=== PATIENT | female | born 1945 | race Caucasian/White ===

== ENCOUNTER 2023-12-16 14:13 | Emergency (ER) | payer MEDICARE, BC, SELFPAY ==
[2023-12-16 14:28] VITALS: BP 142/67
[2023-12-16 14:58] LABS: % Basophils 0.4 % (0-2); % Immature Granulocytes 0.6 % (0-0.5); % Lymphocytes 20.5 % (20.5-51.1); % Monocytes 4.9 % (1.7-9.3); % Neutrophils 72.6 % (42.2-75.2); Absolute Eosinophils 0.1 10^3/uL (0-0.7); Absolute Immature Granulocytes 0.1 10^3/uL (0-0.05); Absolute Monocytes 0.5 10^3/uL (0.1-0.6); Absolute Neutrophils 7.1 10^3/uL (1.4-6.5); Hematocrit 33.8 % (37.0-47.0); Hemoglobin 9.8 g/dL (12.0-16.0); Mean Corpuscular Hgb 20.5 pg (27.0-31.0); Mean Corpuscular Volume 70.9 fL (81.0-99.0); Mean Platelet Volume 10.7 fL (7.4-10.4); Nucleated Red Blood Cells % 0 %; Platelet Count 179 10^3/uL (130-400); Red Blood Cell Count 4.77 10^6/uL (4.20-5.40); Red Cell Dist. Width 18.6 % (11.5-14.5); White Blood Cell Count 9.8 10^3/uL (4.8-10.8)
[2023-12-16 15:20] LABS: ALT (SGPT) 15 U/L (0-35); AST (SGOT) 26 U/L (14-36); Albumin 3.6 g/dl (3.5-5.0); Alkaline Phosphatase 84 U/L (38-126); Blood Urea Nitrogen 18 mg/dl (7-17); Calcium 9.5 mg/dl (8.4-10.2); Carbon Dioxide 22 mmol/L (22-30); Chloride 107 mmol/L (98-107); Glucose 165 mg/dl (70-99); Potassium 3.6 mmol/L (3.5-5.1); Sodium 142 mmol/L (135-145); Total Bilirubin 0.7 mg/dl (0.2-1.3); eGFR > 60.00
[2023-12-16 15:26] LABS: Troponin I < 0.012 ng/ml
[2023-12-16 15:33] LABS: Normal RBC Morphology No
[2023-12-16 15:34] LABS: Hypochromasia Slight
[2023-12-16 15:37] LABS: Poikilocytosis Slight
[2023-12-16 16:03] VITALS: BMI 30.1
[2023-12-16 16:05] VITALS: BP 152/63
--- NOTE | 2023-12-16 16:15 | ED.GENMED ---
History of Present Illness
General
Chief Complaint: Heart Rate Problem
Time Seen by Provider: 12/16/23 15:49
Travel History
Have you had any contact with someone who has COVID-19?: No
Do you have any symptoms of coronavirus? Fever > 100 degrees, chills, cough, shortness of breath, sore throat, loss of taste or smell, muscle aches, or headache?: No
History of Present Illness
History of Present Illness:
78-year-old female presents to the emergency department for evaluation of presumed rapid atrial fibrillation. Has a history of A-fib status post pacemaker placement, was being assessed by her nurse practitioner at [facility] today
when an irregular heart rhythm was noted. She states she abruptly had an onset of shortness of breath after eating lunch however currently feels well with no symptoms. She is maintained on digoxin but does not take any other rate control
medications. Currently has no chest pain or shortness of breath
Past History
Past History
ED Past Medical History: Arrthythmia (A fib on Eliquis), COPD, GERD, HTN, Psychiatric (anxiety. Saw PCP 3 days ago and started on Zoloft. Takes Escitalopram 10 mg, Hydroxizine 25 mg, Trazadone 50 mg) and Other (melanoma, pruritis w/ constant
scratching and digging at skin causing cellulitis)
ED Past Surgical History: Gynecological and Other (N/A)
Social History
Tobacco: Non-smoker
Personal: Single
Living: alone
Review of Systems
Review of Systems
Allergies reviewed?: Yes
All Other Systems: ROS reviewed and negative except as documented in HPI and ROS
Phy Exam
Physical Exam
Physical Exam:
GEN: Well appearing, NAD, WDWN
HEENT: Oral mucosa moist, no scleral icterus
Cardiac: Irregular rhythm, controlled rate, no murmur
Lung: No respiratory distress, no tachypnea, lungs clear to auscultation bilaterally
MSK: No gross deformity or injuries, no lower extremity edema
Skin: Good color, no pallor or jaundice, no rashes
Neuro: AO x3, moves all extremities freely
Psych: Calm, cooperative
Course
Orders/Labs/Results
Orders:
Orders
12/16/23 14:18
ECG [Electrocardiogram (*1)] Urgent
Reason for Study: Chest Pain
EKG- Treatment ONCE
12/16/23 14:44
Complete Blood Count/With Diff Urgent
Comprehensive Metabolic Panel Urgent
Troponin I Urgent
12/16/23 16:03
CR Chest - 2 Views Urgent
Comment:
Reason For Exam: SOB
Abnormal Lab Results
12/16/23
14:44
Hgb 9.8 L g/dL
(12.0-16.0)
Hct 33.8 L %
(37.0-47.0)
MCV 70.9 L fL
(81.0-99.0)
MCH 20.5 L pg
(27.0-31.0)
MCHC 29.0 L g/dL
(33.0-37.0)
RDW 18.6 H %
(11.5-14.5)
MPV 10.7 H fL
(7.4-10.4)
Abs Immat Gran (auto) 0.1 H 10^3/uL
(0-0.05)
Absolute Neuts (auto) 7.1 H 10^3/uL
(1.4-6.5)
Immature Gran % 0.6 H %
(0-0.5)
BUN 18 H mg/dl
(7-17)
Glucose 165 H mg/dl
(70-99)
Total Protein 6.0 L g/dl
(6.3-8.2)
12/16/23 14:44
12/16/23 14:44
Vital Signs
Initial and Last Documented VS:
Initial Vital Signs
Temp Pulse Resp BP Pulse Ox
98.3 F 110 18 142/67 97
12/16/23 14:28 12/16/23 14:28 12/16/23 14:28 12/16/23 14:28 12/16/23 14:28
Last Documented Vital Signs
Temp Pulse Resp BP Pulse Ox
98.3 F 80 15 155/64 96
12/16/23 14:28 12/16/23 17:30 12/16/23 17:30 12/16/23 17:06 12/16/23 17:30
MDM/Problems Addressed
MDM/Problems Addressed:
Patient noted to be initially in rapid atrial fibrillation however after allowing the patient to rest in the emergency department heart rate improved. She was able to ambulate without significant increase in heart rate and had no shortness of
breath or hypoxia. Her symptoms have since resolved. 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
controlling meds at this time. Pacemaker was interrogated which confirmed the patient is chronically in an atrial arrhythmia with occasional atrial or SVT episodes, most recently occurring today correlating with the patient's symptoms.
*Critical Care Note
Total Time (30-74mins, 75-104mins- exclusive of procedures): Not Applicable
ED Attending Note
-
Portions of this chart may have been created with voice recognition software.� Occasional wrong word or��sound alike� substitutions may have occurred due to the inherent limitations of voice recognition software.
Discharge Plan
Departure
Patient Disposition: Home (Routine Discharge)
Date of Disposition: 12/16/23
Time of Disposition: 17:23
Patient with high blood pressure during this ER visit?: No
Discharge Problem:
Atrial fibrillation
Instructions: Atrial Fibrillation (DC)
Prescriptions:
No Action
furosemide 40 mg tablet
60 mg PO DAILY
potassium chloride 10 mEq capsule, extended release
10 meq PO DAILY
ropinirole 1 mg tablet
1 mg PO HS
Rx Instructions:
taken w/ 2mg = 3mg
trazodone 50 mg tablet
50 mg PO HS
omeprazole 40 mg capsule,delayed release(DR/EC)
40 mg PO BID
buspirone 7.5 mg tablet
7.5 mg PO BID
digoxin 125 mcg (0.125 mg) tablet
0.125 mcg PO DAILY
Eliquis 5 mg tablet
5 mg PO BID
metolazone 2.5 mg tablet
2.5 mg PO DAILY PRN (Reason: Fluid retention/Swelling)
Fruit and Vegetable Daily 5-6-150 mg Capsule
1 cap PO TID
cyanocobalamin (vitamin B-12) 1,000 mcg Tablet
1,000 mcg PO DAILY Qty: 0 0RF
Saccharomyces boulardii 250 mg Capsule
250 mg PO BID Qty: 0 0RF
aspirin 81 mg Tablet,Delayed Release (Dr/Ec)
81 mg PO DAILY
carvedilol 3.125 mg tablet
3.125 mg PO BID
ropinirole 2 mg tablet
2 mg PO HS
magnesium 250 mg Tablet
250 mg PO HS
duloxetine 30 mg capsule,delayed release(DR/EC)
30 mg PO DAILY
Referrals:
BEENA VIERA CRNP [Family Provider] -
Activity Restrictions/Additional Instructions:
Call your dumpcart driver tomorrow
Interventions
Interventions:
*Risk Screen - Suicide Last Done: 12/16/23 14:28
*General Assessment Last Done: 12/16/23 16:08
*Neglect/Abuse Screening Last Done: 12/16/23 14:28
ED- Fall Risk Assessment Last Done: 12/16/23 16:09
*ED COVID-19 Vaccine History Last Done: 12/16/23 14:28
*Nursing Disposition Last Done: 12/16/23 17:53
ED- Cardiac Assessment Last Done: 12/16/23 16:05
ED- Pulmonary Assessment Last Done: 12/16/23 16:05
Discharge Date and Time
Discharge Date/Time: 12/16/23 17:53
[2023-12-16 17:06] VITALS: BP 155/64
== END 2023-12-16 17:53 | disposition home or self-care (01) ==
LOC: EMR 14:13
PROVIDERS: Emergency Medicine; EMERGENCY PHYSICIAN Emergency Medicine; FAMILY PHYSICIAN Nurse Practitioner Gerontology
DX: I48.91 Unspecified atrial fibrillation (principal); Z95.0 Presence of cardiac pacemaker
CPT/HCPCS: 99285; 93288; 71046; 80053; 84484; 85025; 93005

== ENCOUNTER → 2024-04-11 17:18 | Outpatient (REF) | payer MEDICARE, BC, SELFPAY | LOC: RAD 17:18 | PROVIDERS: ATTENDING PHYSICIAN Otolaryngology | DX: E04.2 Nontoxic multinodular goiter (principal) | CPT/HCPCS: 76536 ==

== ENCOUNTER → 2024-09-15 10:16 | Outpatient (REF) | payer MEDICARE, BC, SELFPAY ==
[2024-09-15 10:50] LABS: Urine Albumin 1+ (Neg - Trace); Urine Bilirubin Negative (Negative); Urine Character Clear (Clear); Urine Color Yellow; Urine Glucose Negative (Negative); Urine Ketone Negative (Negative); Urine Leukocyte Negative (Negative); Urine Nitrite Positive (Negative); Urine Occult Blood Negative (Negative); Urine Urobilinogen Negative (Neg - 1+)
[2024-09-15 11:14] LABS: Urine Bacteria Many (Negative); Urine Red Blood Cell 0-2 /HPF (0-2); Urine White Cell 21-25 /HPF (0-5)
== END ==
LOC: OLABMERCHI 10:16
PROVIDERS: ATTENDING PHYSICIAN Hospitalist
DX: N39.0 Urinary tract infection, site not specified (principal)
CPT/HCPCS: 36415; 81003; 81015; 87077; 87086; 87186

== ENCOUNTER 2024-12-18 22:58 | Inpatient (IN) | payer MEDICARE, BC, SELFPAY ==
[2024-12-18] VITALS (26 sets, daily range): BP systolic 91–149; BP diastolic 59–127; BMI 32.4
[2024-12-18] MEDS: CARDIZEM 15 MG IV (19:48)
[2024-12-18] MEDS: CARDIZEM 125 IV (19:49)
[2024-12-18 20:05] LABS: % Basophils 0.2 % (0-2); % Immature Granulocytes 1.2 % (0-0.5); % Lymphocytes 4.8 % (20.5-51.1); % Monocytes 6.2 % (1.7-9.3); % Neutrophils 87.6 % (42.2-75.2); Absolute Basophils 0.1 10^3/uL (0-0.2); Absolute Immature Granulocytes 0.3 10^3/uL (0-0.05); Absolute Monocytes 1.3 10^3/uL (0.1-0.6); Absolute Neutrophils 18.9 10^3/uL (1.4-6.5); Hematocrit 39.9 % (37.0-47.0); Hemoglobin 10.7 g/dL (12.0-16.0); Mean Corp Hgb Conc. 26.8 g/dL (33.0-37.0); Mean Corpuscular Hgb 20.9 pg (27.0-31.0); Mean Corpuscular Volume 77.8 fL (81.0-99.0); Mean Platelet Volume 11.2 fL (7.4-10.4); Nucleated Red Blood Cells % 0.8 %; Platelet Count 463 10^3/uL (130-400); Red Blood Cell Count 5.13 10^6/uL (4.20-5.40); Red Cell Dist. Width 16.8 % (11.5-14.5); White Blood Cell Count 21.6 10^3/uL (4.8-10.8)
[2024-12-18 20:13] LABS: INR 2.78; PT 29.3 Sec (11.4-14.6)
[2024-12-18 20:17] LABS: Alkaline Phosphatase 103 U/L (38-126); Blood Urea Nitrogen 42 mg/dl (7-17); Calcium 9.5 mg/dl (8.4-10.2); Carbon Dioxide 7 mmol/L (22-30); Chloride 111 mmol/L (98-107); Estimated Creatinine Clearance 23 ml/min; Glucose 40 mg/dl (70-99); Potassium 6.5 mmol/L (3.5-5.1); Sodium 146 mmol/L (135-145); Total Protein 6.1 g/dl (6.3-8.2); eGFR 24.64
[2024-12-18 20:20] LABS: COVID-19 Antigen Negative (Negative)
[2024-12-18] MEDS: DEXTROSE 50% SYRINGE 25 GRAMS IV (20:24)
[2024-12-18] MEDS: NOVOLIN R 5 UNITS IV (20:24)
[2024-12-18 20:26] LABS: ALT (SGPT) 39 U/L (0-35); AST (SGOT) 62 U/L (14-36)
[2024-12-18] MEDS: D10W 250 IV (20:27)
[2024-12-18 20:28] LABS: NT-proBNP 15200 pg/ml; Troponin I 0.051 ng/ml
[2024-12-18] MEDS: CALCIUM GLUCONATE 100 IV (20:44)
[2024-12-18 20:49] LABS: Glucose - Point of Care 61 mg/dl (70-99)
[2024-12-18 21:09] LABS: Lactic Acid 10.8 mmol/L (0.7-2.0)
[2024-12-18 21:15] LABS: B.E. -16.3 mmol/L; O2 Saturation % 97.8 % (94-98); PCO2 23 mmHg (32-35); PO2 94 mmHg (83-108); pH 7.23 (7.35-7.45)
[2024-12-18 21:17] LABS: HCO3 9.6 mmol/L (21-28)
[2024-12-18 21:21] LABS: Glucose - Point of Care 150 mg/dl (70-99)
--- NOTE | 2024-12-18 21:30 | ED.GENMED ---
Addendum entered and electronically signed by Jaxon Jones, 12/18/24 22:55:
Patient seen evaluated by myself. 79-year-old female alert and oriented, hypoxia improved, no clear cause for possible sepsis. Possibly related to hypoxia. Hyperkalemia improved after IV insulin. Renal insufficiency. Elevated bilirubin of
unclear etiology. Admit to ICU.
Original Note:
History of Present Illness
<Good Ellis PA-C - Last Filed: 12/18/24 21:48>
General
Chief Complaint: Breathing Problem
Time Seen by Provider: 12/18/24 19:16
History of Present Illness
History of Present Illness:
79-year-old female with history of paroxysmal A-fib on Eliquis, permanent pacemaker, COPD, and hypertension presents to the emergency department for evaluation of shortness of breath that is been worsening for the past month or more. In the past 7
days it is profoundly worsened causing her to come to the ER today. Her son attempted to get a home pulse oximetry reading on her and was unable to get a valid number. She denies any chest or abdominal pain at this time. She has been compliant
with all of her home medications. She is noted to have numerous skin excoriations which she states are chronic for her.
Past History
<Good Ellis PA-C - Last Filed: 12/18/24 21:48>
Past History
ED Past Medical History: Arrthythmia (A fib on Eliquis), COPD, GERD, HTN, Psychiatric (anxiety. Saw PCP 3 days ago and started on Zoloft. Takes Escitalopram 10 mg, Hydroxizine 25 mg, Trazadone 50 mg) and Other (melanoma, pruritis w/ constant
scratching and digging at skin causing cellulitis)
ED Past Surgical History: Gynecological and Other (N/A)
Social History
Tobacco: Non-smoker
Personal: Single
Living: alone
Review of Systems
<Good Ellis PA-C - Last Filed: 12/18/24 21:48>
Review of Systems
Allergies reviewed?: Yes
All Other Systems: ROS reviewed and negative except as documented in HPI and ROS
Phy Exam
<Good Ellis PA-C - Last Filed: 12/18/24 21:48>
Physical Exam
Physical Exam:
GEN: Pale, acutely ill-appearing, tachypneic
Eyes: PERRLA, EOMs intact, no scleral icterus
HENT: NCAT, oral mucosa dry, no JVD
Lungs: Tachypneic, no accessory muscle use, lungs clear to auscultation
Cardiac: Markedly tachycardic, no murmur
Abdomen: S, NT, ND, NABS, no masses or hepatosplenomegaly
: Fungal appearing rash from the groin bilaterally up to the lower abdomen, no beefy erythema or tenderness, no discharge suspicious for cellulitis
Neuro: AO x 3, no focal deficits to BUE/BLE, normal sensation throughout
MSK: No gross deformity or ecchymosis. Numerous skin excoriations, no overt erythema. No peripheral edema
Skin: No rashes, petechiae. Normal color, no pallor or jaundice.
Psych: Calm, cooperative, proper hygiene
Scores
<Good Ellis PA-C - Last Filed: 12/18/24 21:48>
Heart Failure Risk
Heart Failure Risk Score: Yes
History of Stroke or TIA: No
History of intubation for respiratory distress: No
Heart rate on ED arrival >/= 110: Yes
SaO2 <90% on arrival on room air: Yes
HR >/=110 during 3min walk test (or too ill to perform test): Yes
ECG has acute ischemic changes: No
Urea >/=12mmol/L (BUN 33.6mg/dL): Yes
Serum CO2>/=35mmol/L: No
Troponin I or T elevated to TN Level (0.4mg/dL): Yes
NT-proBNP >/=5,000ng/L (5,000pg/ml): Yes
HF Risk Score: 7
Admission Status: VERY HIGH RISK 69.8% Consider admission to hospital
<Jaxon Jones DO - Last Filed: 12/18/24 22:54>
Heart Failure Risk
HF Risk Score: 7
Admission Status: VERY HIGH RISK 69.8% Consider admission to hospital
Course
<Good Ellis PA-C - Last Filed: 12/18/24 21:48>
Orders/Labs/Results
Orders:
Orders
12/18/24 19:08
EKG [Electrocardiogram (*1)] Urgent
Reason for Study: Shortness of Breath
12/18/24 19:09
EKG- Treatment ONCE
12/18/24 19:24
CR Chest Portable - 1 View Urgent
Comment:
Reason For Exam: SOB
Reason Study Needs to be Portable: Other
12/18/24 19:30
Diltiazem 125 mg/125 ml Nss [Cardizem] 125 mg in 125 ml IV PER PROTOCOL
Initial dose in mg/hr, then titrate:: 5
Titrate to keep:: Heart rate 80-100 bpm
Titrate by mg/hr:: 5 mg/hr
Frequency of titrations (minutes):: 15
Maximum dose in mg/hr:: 15
12/18/24 19:45
Diltiazem 125 mg/125 ml Nss [Cardizem] 125 mg in 125 ml IV PER PROTOCOL
Initial dose in mg/hr, then titrate:: 5
Titrate to keep:: Heart rate 80-100 bpm
Titrate by mg/hr:: 5 mg/hr
Frequency of titrations (minutes):: 15
Maximum dose in mg/hr:: 15
Diltiazem HCl [Cardizem] 15 mg IV NOW STA
12/18/24 19:49
Type+Screen Urgent
COVID-19 Antigen Urgent
Source: Nasal Swab
Complete Blood Count/With Diff Urgent
Comprehensive Metabolic Panel Urgent
NT-proBNP Urgent
Prothrombin Time Urgent
Troponin I Urgent
Influenza A+B Rapid Molecular Urgent
VALARIE Source: Nasal Swab
Specimen Description:
12/18/24 20:09
ABO2 Urgent
BBK Wristband Number:
Associate notified that ABO2 has been ordered: ASHLEY
Date: 12/18/24
Time: 20:[address] Clerk ID: [id number]
12/18/24 20:17
Dextrose 50%-Water [Dextrose 50% Syringe] 25 grams IV NOW STA
Insulin Human Regular [Novolin R] 5 units IV NOW STA
12/18/24 20:19
Dextrose 10%/Water 500 ml [D10w] 250 ml IV 250 mls/hr
12/18/24 20:20
0.9% Sodium Chloride 500 ml [Nss] 500 ml IV BOLUS
12/18/24 20:22
Calcium Gluconate 1 gram/100mL [Calcium Gluconate] 1 gram in 100 ml IV ONCE
12/18/24 20:39
Lactic Acid Q4H
Comment: CANCEL 2nd LACTIC ACID IF 1st LACTIC ACID IS LESS THAN 2
Blood Culture Q30M
VALARIE Source: Blood/Venous
Specimen Description:
Blood Culture Q30M
VALARIE Source: Blood/Venous
Specimen Description:
12/18/24 20:46
Arterial Blood Gas Urgent
%Oxygen/Room Air: ?
12/18/24 21:17
Ropinirole [Requip] 1 mg PO NOW STA
12/18/24 21:23
Cefepime HCl [Maxipime] 2,000 mg IV NOW STA
12/18/24 21:28
Vancomycin [Vancocin] 2,000 mg 0.9% Sodium Chloride 500 ml [Nss] 500 ml IV NOW
12/18/24 21:29
BMP [Basic Metabolic Panel] Routine
Urinalysis Reflex To Culture Urgent
Date Specimen was Collected: 12/18/24
Time Specimen was Collected: 21:28
Urine Microscopic Reflex Cult Urgent
Urine Culture Urgent
VALARIE Source: U
Specimen Description:
Obtained by: Random
Date Specimen was Collected: 12/18/24
Time Specimen was Collected: :
12/18/24 21:30
Furosemide [Lasix] 40 mg IV ONCE ONE
12/18/24 21:38
Sterile Water [Sterile Water For Injection] 10 ml .ROUTE .STK-MED ONE
12/18/24 22:18
CT Abd/pel Without Iv Or Oral Urgent
Comment:
Reason For Exam: Lactic Acidosis, Sepsis
12/18/24 22:25
Admit/Transfer Patient As Directed
Co-Sign Provider:
Level of Care: Inpatient admission
Assign to:: ICU
Physician / Group: Timothy
Diagnosis: Lactic Acidosis, ED, Hyperkalemia
Reason for Hospitalization: Lactic Acidosis, ED, Hyperkalemia
Expected length of stay greater than two midnights?: Yes
ELOS- Estimated Length of Stay in days: 5
I certify the patient meets the requirements for IP care: Yes
PRN Pain Medication Management As Directed
May give lesser potent ordered pain med per pt: Yes
preference::
Protocol:: Medication orders for pain may be administered in a
manner that supports deferring to patient preference
when the pt is:
- Requesting an ordered lesser potent pain medication.
Least to most potent pain medications are defined
as: acetaminophen < NSAID < tramadol < opioids
(morphine, oxycodone, hydromorphone).
- Requesting a lesser dose of the same medication IF
ORDERED.
- Requesting a less intrusive route of administration
if both routes are prescribed by the provider (PO <
IV).
12/18/24 22:26
Code Status As Directed
Resuscitation Status: Do not resuscitate
Reached after discussion with pt or family/Healthcare POA: Yes
DNR Bracelet Application ONCE
12/19/24 00:30
Lactic Acid Q4H
Comment: CANCEL 2nd LACTIC ACID IF 1st LACTIC ACID IS LESS THAN 2
Abnormal Lab Results
12/18/24 12/18/24 12/18/24
19:49 20:39 20:46
WBC 21.6 H 10^3/uL
(4.8-10.8)
Hgb 10.7 L g/dL
(12.0-16.0)
MCV 77.8 L fL
(81.0-99.0)
MCH 20.9 L pg
(27.0-31.0)
MCHC 26.8 L g/dL
(33.0-37.0)
RDW 16.8 H %
(11.5-14.5)
Plt Count 463 H 10^3/uL
(130-400)
MPV 11.2 H fL
(7.4-10.4)
Abs Immat Gran (auto) 0.3 H 10^3/uL
(0-0.05)
Absolute Neuts (auto) 18.9 H 10^3/uL
(1.4-6.5)
Absolute Lymphs (auto) 1.0 L 10^3/uL
(1.2-3.4)
Absolute Monos (auto) 1.3 H 10^3/uL
(0.1-0.6)
Immature Gran % 1.2 H %
(0-0.5)
Neutrophils % 87.6 H %
(42.2-75.2)
Lymphocytes % 4.8 L %
(20.5-51.1)
PT 29.3 H Sec
(11.4-14.6)
pH 7.23 L
(7.35-7.45)
pCO2 23 L mmHg
(32-35)
HCO3 9.6 L* mmol/L
(21-28)
Sodium 146 H mmol/L
(135-145)
Potassium 6.5 H* mmol/L
(3.5-5.1)
Chloride 111 H mmol/L
(98-107)
Carbon Dioxide 7 L* mmol/L
(22-30)
BUN 42 H mg/dl
(7-17)
Creatinine 2.0 H mg/dL
(0.6-1.0)
Glucose 40 L* mg/dl
(70-99)
Lactic Acid 10.8 H* mmol/L
(0.7-2.0)
Total Bilirubin 3.0 H mg/dl
(0.2-1.3)
AST 62 H U/L
(14-36)
ALT 39 H U/L
(0-35)
Troponin I 0.051 H* ng/ml
Total Protein 6.1 L g/dl
(6.3-8.2)
Urine Ketones
Urine Bilirubin
Urine Bacteria (Reflex)
Urine Albumin (Reflex)
POC Glucose
12/18/24 12/18/24 12/18/24
20:47 21:20 21:29
WBC
Hgb
MCV
MCH
MCHC
RDW
Plt Count
MPV
Abs Immat Gran (auto)
Absolute Neuts (auto)
Absolute Lymphs (auto)
Absolute Monos (auto)
Immature Gran %
Neutrophils %
Lymphocytes %
PT
pH
pCO2
HCO3
Sodium
Potassium 5.3 H mmol/L
(3.5-5.1)
Chloride 110 H mmol/L
(98-107)
Carbon Dioxide 10 L* mmol/L
(22-30)
BUN 42 H mg/dl
(7-17)
Creatinine 1.8 H mg/dL
(0.6-1.0)
Glucose 154 H mg/dl
(70-99)
Lactic Acid
Total Bilirubin
AST
ALT
Troponin I
Total Protein
Urine Ketones Trace A
(Negative)
Urine Bilirubin 2+ A
(Negative)
Urine Bacteria (Reflex) Moderate A
(Negative)
Urine Albumin (Reflex) 2+ A
(Neg - Trace)
POC Glucose 61 L mg/dl 150 H mg/dl
(70-99) (70-99)
12/18/24 12/18/24 12/18/24
21:42 22:02 22:27
WBC
Hgb
MCV
MCH
MCHC
RDW
Plt Count
MPV
Abs Immat Gran (auto)
Absolute Neuts (auto)
Absolute Lymphs (auto)
Absolute Monos (auto)
Immature Gran %
Neutrophils %
Lymphocytes %
PT
pH
pCO2
HCO3
Sodium
Potassium
Chloride
Carbon Dioxide
BUN
Creatinine
Glucose
Lactic Acid
Total Bilirubin
AST
ALT
Troponin I
Total Protein
Urine Ketones
Urine Bilirubin
Urine Bacteria (Reflex)
Urine Albumin (Reflex)
POC Glucose 150 H mg/dl 133 H mg/dl 122 H mg/dl
(70-99) (70-99) (70-99)
12/18/24 19:49
12/18/24 21:29
Vital Signs
Initial and Last Documented VS:
Initial Vital Signs
Temp Pulse Resp BP Pulse Ox
97.7 F 148 26 106/91 85
12/18/24 19:04 12/18/24 19:04 12/18/24 19:04 12/18/24 19:04 12/18/24 19:04
Last Documented Vital Signs
Temp Pulse Resp BP Pulse Ox
97.7 F 111 21 117/82 96
12/18/24 19:04 12/18/24 22:45 12/18/24 22:45 12/18/24 22:45 12/18/24 22:30
<Jaxon Jones, DO - Last Filed: 12/18/24 22:54>
Orders/Labs/Results
Orders:
Orders
12/18/24 19:08
EKG [Electrocardiogram (*1)] Urgent
Reason for Study: Shortness of Breath
12/18/24 19:09
EKG- Treatment ONCE
12/18/24 19:24
CR Chest Portable - 1 View Urgent
Comment:
Reason For Exam: SOB
Reason Study Needs to be Portable: Other
12/18/24 19:30
Diltiazem 125 mg/125 ml Nss [Cardizem] 125 mg in 125 ml IV PER PROTOCOL
Initial dose in mg/hr, then titrate:: 5
Titrate to keep:: Heart rate 80-100 bpm
Titrate by mg/hr:: 5 mg/hr
Frequency of titrations (minutes):: 15
Maximum dose in mg/hr:: 15
12/18/24 19:45
Diltiazem 125 mg/125 ml Nss [Cardizem] 125 mg in 125 ml IV PER PROTOCOL
Initial dose in mg/hr, then titrate:: 5
Titrate to keep:: Heart rate 80-100 bpm
Titrate by mg/hr:: 5 mg/hr
Frequency of titrations (minutes):: 15
Maximum dose in mg/hr:: 15
Diltiazem HCl [Cardizem] 15 mg IV NOW STA
12/18/24 19:49
Type+Screen Urgent
COVID-19 Antigen Urgent
Source: Nasal Swab
Complete Blood Count/With Diff Urgent
Comprehensive Metabolic Panel Urgent
NT-proBNP Urgent
Prothrombin Time Urgent
Troponin I Urgent
Influenza A+B Rapid Molecular Urgent
VALARIE Source: Nasal Swab
Specimen Description:
12/18/24 20:09
ABO2 Urgent
BBK Wristband Number:
Associate notified that ABO2 has been ordered: ASHLEY
Date: 12/18/24
Time: 20:[address] Clerk ID: [id number]
12/18/24 20:17
Dextrose 50%-Water [Dextrose 50% Syringe] 25 grams IV NOW STA
Insulin Human Regular [Novolin R] 5 units IV NOW STA
12/18/24 20:19
Dextrose 10%/Water 500 ml [D10w] 250 ml IV 250 mls/hr
12/18/24 20:20
0.9% Sodium Chloride 500 ml [Nss] 500 ml IV BOLUS
12/18/24 20:22
Calcium Gluconate 1 gram/100mL [Calcium Gluconate] 1 gram in 100 ml IV ONCE
12/18/24 20:39
Lactic Acid Q4H
Comment: CANCEL 2nd LACTIC ACID IF 1st LACTIC ACID IS LESS THAN 2
Blood Culture Q30M
VALARIE Source: Blood/Venous
Specimen Description:
Blood Culture Q30M
VALARIE Source: Blood/Venous
Specimen Description:
12/18/24 20:46
Arterial Blood Gas Urgent
%Oxygen/Room Air: ?
12/18/24 21:17
Ropinirole [Requip] 1 mg PO NOW STA
12/18/24 21:23
Cefepime HCl [Maxipime] 2,000 mg IV NOW STA
12/18/24 21:28
Vancomycin [Vancocin] 2,000 mg 0.9% Sodium Chloride 500 ml [Nss] 500 ml IV NOW
12/18/24 21:29
BMP [Basic Metabolic Panel] Routine
Urinalysis Reflex To Culture Urgent
Date Specimen was Collected: 12/18/24
Time Specimen was Collected: 21:28
Urine Microscopic Reflex Cult Urgent
Urine Culture Urgent
VALARIE Source: U
Specimen Description:
Obtained by: Random
Date Specimen was Collected: 12/18/24
Time Specimen was Collected: 21:28
12/18/24 21:30
Furosemide [Lasix] 40 mg IV ONCE ONE
12/18/24 21:38
Sterile Water [Sterile Water For Injection] 10 ml .ROUTE .STK-MED ONE
12/18/24 22:18
CT Abd/pel Without Iv Or Oral Urgent
Comment:
Reason For Exam: Lactic Acidosis, Sepsis
12/18/24 22:25
Admit/Transfer Patient As Directed
Co-Sign Provider:
Level of Care: Inpatient admission
Assign to:: ICU
Physician / Group: Timothy
Diagnosis: Lactic Acidosis, ED, Hyperkalemia
Reason for Hospitalization: Lactic Acidosis, ED, Hyperkalemia
Expected length of stay greater than two midnights?: Yes
ELOS- Estimated Length of Stay in days: 5
I certify the patient meets the requirements for IP care: Yes
PRN Pain Medication Management As Directed
May give lesser potent ordered pain med per pt: Yes
preference::
Protocol:: Medication orders for pain may be administered in a
manner that supports deferring to patient preference
when the pt is:
- Requesting an ordered lesser potent pain medication.
Least to most potent pain medications are defined
as: acetaminophen < NSAID < tramadol < opioids
(morphine, oxycodone, hydromorphone).
- Requesting a lesser dose of the same medication IF
ORDERED.
- Requesting a less intrusive route of administration
if both routes are prescribed by the provider (PO <
IV).
12/18/24 22:26
Code Status As Directed
Resuscitation Status: Do not resuscitate
Reached after discussion with pt or family/Healthcare POA: Yes
DNR Bracelet Application ONCE
12/19/24 00:30
Lactic Acid Q4H
Comment: CANCEL 2nd LACTIC ACID IF 1st LACTIC ACID IS LESS THAN 2
Abnormal Lab Results
12/18/24 12/18/24 12/18/24
19:49 20:39 20:46
WBC 21.6 H 10^3/uL
(4.8-10.8)
Hgb 10.7 L g/dL
(12.0-16.0)
MCV 77.8 L fL
(81.0-99.0)
MCH 20.9 L pg
(27.0-31.0)
MCHC 26.8 L g/dL
(33.0-37.0)
RDW 16.8 H %
(11.5-14.5)
Plt Count 463 H 10^3/uL
(130-400)
MPV 11.2 H fL
(7.4-10.4)
Abs Immat Gran (auto) 0.3 H 10^3/uL
(0-0.05)
Absolute Neuts (auto) 18.9 H 10^3/uL
(1.4-6.5)
Absolute Lymphs (auto) 1.0 L 10^3/uL
(1.2-3.4)
Absolute Monos (auto) 1.3 H 10^3/uL
(0.1-0.6)
Immature Gran % 1.2 H %
(0-0.5)
Neutrophils % 87.6 H %
(42.2-75.2)
Lymphocytes % 4.8 L %
(20.5-51.1)
PT 29.3 H Sec
(11.4-14.6)
pH 7.23 L
(7.35-7.45)
pCO2 23 L mmHg
(32-35)
HCO3 9.6 L* mmol/L
(21-28)
Sodium 146 H mmol/L
(135-145)
Potassium 6.5 H* mmol/L
(3.5-5.1)
Chloride 111 H mmol/L
(98-107)
Carbon Dioxide 7 L* mmol/L
(22-30)
BUN 42 H mg/dl
(7-17)
Creatinine 2.0 H mg/dL
(0.6-1.0)
Glucose 40 L* mg/dl
(70-99)
Lactic Acid 10.8 H* mmol/L
(0.7-2.0)
Total Bilirubin 3.0 H mg/dl
(0.2-1.3)
AST 62 H U/L
(14-36)
ALT 39 H U/L
(0-35)
Troponin I 0.051 H* ng/ml
Total Protein 6.1 L g/dl
(6.3-8.2)
Urine Ketones
Urine Bilirubin
Urine Bacteria (Reflex)
Urine Albumin (Reflex)
POC Glucose
12/18/24 12/18/24 12/18/24
20:47 21:20 21:29
WBC
Hgb
MCV
MCH
MCHC
RDW
Plt Count
MPV
Abs Immat Gran (auto)
Absolute Neuts (auto)
Absolute Lymphs (auto)
Absolute Monos (auto)
Immature Gran %
Neutrophils %
Lymphocytes %
PT
pH
pCO2
HCO3
Sodium
Potassium 5.3 H mmol/L
(3.5-5.1)
Chloride 110 H mmol/L
(98-107)
Carbon Dioxide 10 L* mmol/L
(22-30)
BUN 42 H mg/dl
(7-17)
Creatinine 1.8 H mg/dL
(0.6-1.0)
Glucose 154 H mg/dl
(70-99)
Lactic Acid
Total Bilirubin
AST
ALT
Troponin I
Total Protein
Urine Ketones Trace A
(Negative)
Urine Bilirubin 2+ A
(Negative)
Urine Bacteria (Reflex) Moderate A
(Negative)
Urine Albumin (Reflex) 2+ A
(Neg - Trace)
POC Glucose 61 L mg/dl 150 H mg/dl
() ()
12/18/24 12/18/24 12/18/24
21:42 22:02 22:27
WBC
Hgb
MCV
MCH
MCHC
RDW
Plt Count
MPV
Abs Immat Gran (auto)
Absolute Neuts (auto)
Absolute Lymphs (auto)
Absolute Monos (auto)
Immature Gran %
Neutrophils %
Lymphocytes %
PT
pH
pCO2
HCO3
Sodium
Potassium
Chloride
Carbon Dioxide
BUN
Creatinine
Glucose
Lactic Acid
Total Bilirubin
AST
ALT
Troponin I
Total Protein
Urine Ketones
Urine Bilirubin
Urine Bacteria (Reflex)
Urine Albumin (Reflex)
POC Glucose 150 H mg/dl 133 H mg/dl 122 H mg/dl
() () (70-99)
12/18/24 19:49
12/18/24 21:29
Vital Signs
Initial and Last Documented VS:
Initial Vital Signs
Temp Pulse Resp BP Pulse Ox
97.7 F 148 26 106/91 85
12/18/24 19:04 12/18/24 19:04 12/18/24 19:04 12/18/24 19:04 12/18/24 19:04
Last Documented Vital Signs
Temp Pulse Resp BP Pulse Ox
97.7 F 111 21 117/82 96
12/18/24 19:04 12/18/24 22:45 12/18/24 22:45 12/18/24 22:45 12/18/24 22:30
<Good Ellis PA-C - Last Filed: 12/18/24 21:48>
MDM/Problems Addressed
MDM/Problems Addressed:
79-year-old female presenting with shortness of breath, found to be in rapid atrial fibrillation. She was treated initially with diltiazem bolus and infusion with good response with heart rates in maintained adequate systolic pressures during this
time. She was noted to be hyperkalemic and hypoglycemic thus was given D50 followed by D10 infusion and insulin for the hyperkalemia as well as calcium due to the EKG irregularities. She is not grossly hypervolemic however chest x-ray is
suspicious for acute CHF thus fluids were held. I suspect lactic acidosis may be on the basis of poor perfusion in the setting of tachyarrhythmia coupled with hypoglycemic state however given her leukocytosis we opted to give broad-spectrum
antibiotics. Cardiac device was interrogated showing persistent rapid atrial fibrillation for the past 48 hours. Will be admitted to the ICU for further management
<Jaxon Jones DO - Last Filed: 12/18/24 22:54>
MDM/Problems Addressed
Chronic conditions affecting care: Arrhythmia and COPD
Acute Exacerbation and/or Progression of Chronic Illness: Arrhythmia and COPD
<Good Ellis PA-C - Last Filed: 12/18/24 21:48>
*Critical Care Note
Total Time (30-74mins, 75-104mins- exclusive of procedures): 85 minutes
comment:
Critical care time: 85-minute
Critical care time was exclusive of: Separately billable procedures, treating other patients, and teaching time
Critical care was necessary to treat or prevent imminent or life-threatening deterioration of the following conditions: Rapid atrial fibrillation, metabolic acidosis
Critical care time spent personally by me on the following activities:
[x] Review of old charts
[x] Obtaining history from patient or surrogate
[x] Ordering and review of the laboratory studies
[x] Ordering and review of radiographic studies
[x] Ordering and performing treatments and interventions
[x] Patient patient's response to treatment
[x] Development of treatment plan with patient or surrogate
<DO Maddy Campbell Last Filed: 12/18/24 22:54>
*Radiology
Radiology exam reviewed: radiology read reviewed (Chest x-ray no acute findings)
*Pulse Oximetry
Patient hypoxic: yes
*EKG
Interpreted by ED Provider?: Yes
EKG Intrepretation Date: 12/18/24
EKG Intrepretation Time: 19:13
Interpretation: abnormal
Comparison EKG: changes noted
Heart Rate: 156
Rate: tachycardiac
Rhythm: a-fib
[place]: normal axis
Interval: normal interval
QRS Pattern: other (LAFB)
Ischemia: no ischemia
*[employer] Interpretation
Rate: tachycardiac
Interpretation: abnormal
Heart Rate: 120
Rhythm: a-fib
<DO Maddy Campbell Last Filed: 12/18/24 22:54>
Patient Management
Social determinants of health affecting care: Living situation
Discussion with other providers: Hospitalist
ED Attending Note
<Good Ellis PA-C - Last Filed: 12/18/24 21:48>
-
Portions of this chart may have been created with voice recognition software.� Occasional wrong word or��sound alike� substitutions may have occurred due to the inherent limitations of voice recognition software.
Discharge Plan
Departure
Patient Disposition: Admit
Date of Disposition: 12/18/24
Time of Disposition: 21:36
Admit to: ICU
Presentation/result/management discussed w/ accepting MD/DO: Hospitalist
Discharge Problem:
Atrial fibrillation with RVR, Metabolic acidosis, Acute heart failure with preserved ejection fraction (HFpEF), Acute hyperkalemia, Hypoglycemia
Prescriptions:
No Action
potassium chloride 10 mEq capsule, extended release
20 meq PO DAILY
ropinirole 1 mg tablet
1 mg PO BID
omeprazole 40 mg capsule,delayed release(DR/EC)
40 mg PO BID
Eliquis 5 mg tablet
5 mg PO BID
aspirin 81 mg Tablet,Delayed Release (Dr/Ec)
81 mg PO DAILY
duloxetine 30 mg capsule,delayed release(DR/EC)
30 mg PO BID
folic acid 1 mg Tablet
1 mg PO DAILY
furosemide [Lasix] 20 mg Tablet
20 mg PO DAILY
cholecalciferol (vitamin D3) [Vitamin D3] 50 mcg (2,000 unit) Tablet
50 mcg PO DAILY
magnesium oxide 400 mg magnesium Tablet
400 mg PO DAILY
loperamide 2 mg Tablet
2 mg PO Q6H PRN (Reason: diarrhea)
acetaminophen 650 mg Tablet Extended Release
1,300 mg PO DAILYPRN PRN (Reason: mild pain)
hydroxyzine pamoate 25 mg Capsule
25 mg PO BIDPRN PRN (Reason: ANXIETY)
Interventions
Interventions:
*Risk Screen - Suicide Last Done: 12/18/24 19:10
*General Assessment Last Done: 12/18/24 19:04
*Neglect/Abuse Screening Last Done: 12/18/24 19:04
ED- Fall Risk Assessment Last Done: 12/18/24 19:40
ED- Cardiac Assessment Last Done: 12/18/24 19:40
ED- Pulmonary Assessment Last Done: 12/18/24 19:40
Discharge Date and Time
Print Language: FRENCH
[2024-12-18 21:39] LABS: Urine Albumin 2+ (Neg - Trace); Urine Bilirubin 2+ (Negative); Urine Character Clear (Clear); Urine Color Amber; Urine Glucose Negative (Negative); Urine Ketone Trace (Negative); Urine Leukocyte Negative (Negative); Urine Nitrite Negative (Negative); Urine Occult Blood Negative (Negative); Urine Specific Gravity 1.025 (<1.030); Urine Urobilinogen 1+ (Neg - 1+)
[2024-12-18 21:43] LABS: Glucose - Point of Care 150 mg/dl (70-99)
[2024-12-18] MEDS: MAXIPIME 2000 MG IV (21:44)
[2024-12-18 21:46] LABS: Urine Bacteria Moderate (Negative); Urine Red Blood Cell 0-2 /HPF (0-2); Urine Squamous Cell 0-2 /LPF (Few)
[2024-12-18 21:53] LABS: Blood Urea Nitrogen 42 mg/dl (7-17); Calcium 8.8 mg/dl (8.4-10.2); Carbon Dioxide 10 mmol/L (22-30); Chloride 110 mmol/L (98-107); Estimated Creatinine Clearance 25 ml/min; Glucose 154 mg/dl (70-99); Potassium 5.3 mmol/L (3.5-5.1); Sodium 144 mmol/L (135-145); eGFR 27.96
[2024-12-18] MEDS: LASIX 40 MG IV (21:53)
[2024-12-18 22:04] LABS: Glucose - Point of Care 133 mg/dl (70-99)
[2024-12-18] MEDS: VANCOCIN 540 MG IV (22:04)
[2024-12-18] MEDS: REQUIP 1 MG PO (22:15)
[2024-12-18 22:29] LABS: Glucose - Point of Care 122 mg/dl (70-99)
--- NOTE | 2024-12-18 22:42 | HPS.HSE ---
Family Physician
-
Family Physician:
Chief Complaint
-
SOB
History of Present Illness
Patient is an 79y F with PMH significant for A-Fib, CHF and melanoma who presents to ED complaining of SOB. Patient states that her dyspnea has gotten progressively worse over the past several months. No significant cough, chest pain,
palpitations, fevers / chills, etc. Patient is on diuretics at home but reports decreased volume and frequency of urination. She complains of fatigue and dyspnea with any activity. Patient states that she was recently placed on a medication 'for
anxiety'. She denies any other recent med changes.
She denies any N/V, abdominal pain. She reports chronic diarrhea - with about 2-3 loose stools per day. Takes occasional Imodium. No recent abx use. Some recent GI symptoms in residents at [facility] where she resides.
Patient presented to the ED today complaining of worsening dyspnea.
On evaluation, she was noted to be in A-Fib with rapid ventricular rates. She had labs done which were markedly abnormal.
Medical History
Past Medical History
Past Medical History: Reports Other
Additional Past Medical History:
Paroxysmal Atrial Fibrillation
Chronic HFpEF
Anemia of Chronic Disease
Bipolar Disorder
Restless Leg Syndrome
Melanoma
Anxiety Disorder with 'Picking'
IBS-D
GERD
? COPD (listed in prior histories - not on current inhalers, denies smoking history)
Past Surgical History: Reports Other
Additional Past Surgical History:
PPM Placement
Thyroid Surgery
Carpal Tunnel Release
Cataracts
Social History
Tobacco: Non-smoker
Alcohol: None
Drug: None
Living: Assisted Living
Family History
Family History: Not pertinent
Allergies / Home Medications
Allergies reflects when Allergies were last updated in [facility].
Home Medications with original date entered in [facility]
Allergy/Medication List:
Allergies
Allergy/AdvReac Type Severity Reaction Status Date / Time
No Known Allergies Allergy Verified 06/29/23 11:21
Home Medications
apixaban 5 mg tablet (Eliquis) 5 mg PO BID Blood clot prevention/tx 03/30/23
omeprazole 40 mg capsule,delayed release 40 mg PO BID Gastrointestinal issue 03/30/23
potassium chloride 10 mEq capsule,extended release 20 meq PO DAILY Electrolyte Repletion 03/30/23
ropinirole 1 mg tablet 1 mg PO BID Neurological Condition 03/30/23
aspirin 81 mg tablet,delayed release 81 mg PO DAILY 12/16/23
duloxetine 30 mg capsule,delayed release 30 mg PO BID 12/16/23
acetaminophen 650 mg tablet,extended release 1,300 mg PO DAILYPRN PRN mild pain 12/18/24
cholecalciferol (vitamin D3) 50 mcg (2,000 unit) tablet (Vitamin D3) 50 mcg PO DAILY 12/18/24
folic acid 1 mg tablet 1 mg PO DAILY 12/18/24
furosemide 20 mg tablet (Lasix) 20 mg PO DAILY 12/18/24
hydroxyzine pamoate 25 mg capsule 25 mg PO BIDPRN PRN ANXIETY 12/18/24
loperamide 2 mg tablet 2 mg PO Q6H PRN diarrhea 12/18/24
magnesium oxide 400 mg PO DAILY 12/18/24
Review of Systems
-
History Source: Patient
A 12 point ROS was completed and negative except as noted: Yes
Constitutional: Reports Fatigue; Denies Fever or Chills
EENT: Denies Sore Throat
Respiratory: Reports Trouble Breathing; Denies Cough or Hemoptysis
Cardiac: Denies Chest Pain, Diaphoresis, Palpitations or Syncope
Abdomen/GI: Reports Diarrhea (chronic / unchanged / non-bloody); Denies Abdominal Pain, Nausea, Vomiting, Bloody Stools or Black Stools
: Reports Other (Decreased urination.); Denies Dysuria, Frequency or Flank Pain
Musculoskeletal: Denies Joint Pain or Edema
Neurological: Reports Other (restless legs); Denies Dizzy or Headache
Physical Exam
Vital Signs
Vital Signs
Temp Pulse Resp BP Pulse Ox
97.7 F 110 23 120/84 96
12/18/24 19:04 12/18/24 22:30 12/18/24 22:30 12/18/24 22:30 12/18/24 22:30
Physical Exam
General: Other (79y F in no acute distress. Mildly restless / moving about in stretcher.)
HEENT: Other (Very dry MM. )
Respiratory: Other (Faint bibasilar rales < 1/4 up. Otherwise clear.)
Cardiac: S1/S2, Irregular Rhythm and Tachycardia; No Murmur
GI: Other (Obese, not fluid filled, tympanic or tender. Pos BS. Abdominal wall with edema / induration with mild erythema. No tenderness, fluctuance or increased warmth. Improving from prior per patient. )
Musculoskeletal: Other (No LE edema. )
Skin: Other (Dry skin with scattered superficial ulcerations / lesions from 'picking'. No evidence of acute infection, abscess, etc.)
Neuro: AO x 3 and Nonfocal/grossly intact
Hematologic/Lymphatic: Other (LE varicose veins. Pulses intact - L > R. Dusky toes with decreased cap refill. No pain.)
Laboratory Results
-
12/18/24 19:49
12/18/24 21:29
Laboratory Results
PT 29.3 Sec (11.4-14.6) H 12/18/24 19:49
INR 2.78 12/18/24 19:49
pH 7.23 (7.35-7.45) L 12/18/24 20:46
pCO2 23 mmHg (32-35) L 12/18/24 20:46
pO2 94 mmHg (83-108) 12/18/24 20:46
HCO3 9.6 mmol/L (21-28) L* 12/18/24 20:46
Lactic Acid 10.8 mmol/L (0.7-2.0) H* 12/18/24 20:39
Total Bilirubin 3.0 mg/dl (0.2-1.3) H 12/18/24 19:49
AST 62 U/L (14-36) H 12/18/24 19:49
ALT 39 U/L (0-35) H 12/18/24 19:49
Alkaline Phosphatase 103 U/L (38-126) 12/18/24 19:49
Troponin I 0.051 ng/ml H* 12/18/24 19:49
Impression/Plan
-
A/P: Patient is an 79y F with PMH significant for A-Fib, CHF and Bipolar disorder who presents to ED for evaluation of SOB. Noted to have myriad / significant lab abnormalities.
ED
Lactic Acidosis / Anion Gap Metabolic Acidosis
Hyperkalemia
- Admit for further evaluation and treatment.
- Etiology of severe lactic acidosis is not clear at present - ? hypoperfusion secondary to hypovolemia, vascular disease, etc.
- Afebrile with no evidence of any acute infectious process at this time.
- Received initial doses of vancomycin and cefepime in the ED - will hold further abx for now and follow clinically / cultures.
- IVF with bicarbonate support for now given severe acidosis and ED.
- Nephrology evaluation for additional evaluation and recommendations.
- CT A/P completed - await formal report. Anasarca noted in the abdominal wall. No evidence of obvious intra-abdominal pathology.
- Check non-invasive Vasc studies of the lower extremities.
- Follow for any new/ focal symptoms. Follow temperature curve.
Chronic HFpEF
Anasarca
- Seeming disconnect between hypoperfusion / lactic acidosis and general dry appearance on exam and BNP elevation, abdominal wall anasarca, etc.
- Follow for changes with volume replacement as noted above.
- Update Echo.
- Cardiology evaluation.
- Patient may benefit from eventual attempt at diuresis once acute acidosis / renal injury is addressed.
Leukocytosis
- ? function of volume versus stress response.
- Note concurrent elevation in platelet count as well.
- Observing off of further abx for now.
- Follow for changes in cell counts / temp / focal signs of infection.
Anemia of Chronic Disease
- Stable. Hgb is stable compared to prior values.
- No reported bleeding per patient.
- Follow for changes with volume as noted above.
Paroxysmal Atrial Fibrillation with Rapid Ventricular Response
- Presented with heart rate to 160 bpm.
- Improved with IV Cardizem started in the ED.
- Mild troponin elevation likely secondary to tachyarrhythmia. Trend to peak.
- IV heparin with no bolus for now. Hold Eliquis.
- Cardiology evaluation for additional recommendations.
Bipolar Disorder
Anxiety / 'Picking'
Scattered Skin Lesions secondary to the above
- Fairly stable. Holding essentially all outpatient meds acutely.
- Wound Care eval for local care recommendations.
- No lesions appear grossly / acutely infected. No signs of abscess, etc.
DVT Prophylaxis: On IV Heparin for now.
Code Status: DNR
[2024-12-18 22:54] LABS: Glucose - Point of Care 123 mg/dl (70-99)
[2024-12-18 23:14] LABS: Glucose - Point of Care 129 mg/dl (70-99)
[2024-12-19] VITALS (26 sets, daily range): BP systolic 98–139; BP diastolic 38–114; BMI 32.4; BMI 29.9
[2024-12-19] MEDS: REQUIP 1 MG PO ×3 (00:40→20:42)
[2024-12-19 00:51] LABS: Hematocrit 36.5 % (37.0-47.0); Hemoglobin 9.7 g/dL (12.0-16.0); Mean Corp Hgb Conc. 26.6 g/dL (33.0-37.0); Mean Corpuscular Hgb 21.3 pg (27.0-31.0); Mean Platelet Volume 11.4 fL (7.4-10.4); Platelet Count 258 10^3/uL (130-400); Red Blood Cell Count 4.56 10^6/uL (4.20-5.40); Red Cell Dist. Width 16.9 % (11.5-14.5); White Blood Cell Count 22.5 10^3/uL (4.8-10.8)
[2024-12-19 00:54] LABS: APTT 36.6 Sec (23.4-35.0)
[2024-12-19 00:57] LABS: Iron 25 ug/dl (37-170)
[2024-12-19] MEDS: SODIUM BICARBONATE 1075 MEQ IV ×2 (01:02→13:47)
[2024-12-19 01:06] LABS: Percent Saturation 7 % (20-50); Total Iron Binding Capacity 333 ug/dl (265-497)
[2024-12-19] MEDS: HEPARIN 25000 UNITS/250 ML IV (01:17)
[2024-12-19 01:21] LABS: Lactic Acid 6.6 mmol/L (0.7-2.0); Troponin I 0.078 ng/ml
--- NOTE | 2024-12-19 01:33 | PTCARENOTE ---
Pt arrived from ER via stretcher at approx 2345. Received pt on Cardizem drip at 5mg/hr. Pt AFib on monitor, 110s-120. Drip increased to 10mg/hr shortly after arrival to floor and pt now AFib 90s, see med titration flowsheet for further details. Pt
is A/O x4, pleasant and cooperative with care. Pt on 2LNC with SpO2 95%. Physical assessment completed, see nursing shift assessment flowsheet for full assessment details. Labs drawn, lactic acid trending down, troponin trending up (see lab values
panel). Baseline PTT obtained and pt started on Heparin drip at around 0120. Sodium bicarb drip started as well. Admission database completed. Pt oriented to room and call hoyos system.
[2024-12-19 03:20] LABS: TSH Reflex To Free T4 2.49 uIU/ml (0.47-4.68)
[2024-12-19 03:24] LABS: Ferritin 13.6 ng/ml (11.1-264.0)
[2024-12-19 05:25] LABS: Venous Blood Gas B.E. -6.4 mmol/L (-4 to +4); Venous Blood Gas HCO3 17.6 mmol/L (22-27); Venous Blood Gas O2 Sat % 98.8 %; Venous Blood Gas pCO2 29 mmHg (35-48); Venous Blood Gas pH 7.39 (7.32-7.43); Venous Blood Gas pO2 117 mmHg (30-50)
--- NOTE | 2024-12-19 05:28 | PTCARENOTE ---
Assessment unchanged. Continues on Cardizem, Heparin, and bicarb drips. AFib 80s on monitor. Pt off O2 at this time and maintaining SpO2 around 94%. Labs sent.
[2024-12-19 05:45] LABS: Hemoglobin 9.4 g/dL (12.0-16.0); Mean Corp Hgb Conc. 28.5 g/dL (33.0-37.0); Mean Corpuscular Hgb 21.1 pg (27.0-31.0); Mean Platelet Volume 11.2 fL (7.4-10.4); Platelet Count 358 10^3/uL (130-400); Red Blood Cell Count 4.46 10^6/uL (4.20-5.40); Red Cell Dist. Width 16.7 % (11.5-14.5); White Blood Cell Count 22.7 10^3/uL (4.8-10.8)
[2024-12-19 05:56] LABS: Lactic Acid 2.7 mmol/L (0.7-2.0)
[2024-12-19 06:18] LABS: Troponin I 0.124 ng/ml
[2024-12-19 06:22] LABS: ALT (SGPT) 40 U/L (0-35); AST (SGOT) 95 U/L (14-36); Albumin 3.4 g/dl (3.5-5.0); Alkaline Phosphatase 88 U/L (38-126); Blood Urea Nitrogen 52 mg/dl (7-17); Calcium 8.8 mg/dl (8.4-10.2); Carbon Dioxide 15 mmol/L (22-30); Chloride 111 mmol/L (98-107); Creatine Phosphokinase 93 U/L (30-135); Direct Bilirubin 0.8 mg/dl (0.0-0.4); Estimated Creatinine Clearance 23 ml/min; Glucose 126 mg/dl (70-99); Phosphorus 6.2 mg/dl (2.5-4.5); Sodium 144 mmol/L (135-145); Total Bilirubin 1.7 mg/dl (0.2-1.3); Total Protein 5.4 g/dl (6.3-8.2)
[2024-12-19] MEDS: MAGNESIUM SULFATE 100 IV (06:49)
[2024-12-19 07:15] LABS: APTT > 200.0 Sec (23.4-35.0)
[2024-12-19 07:39] LABS: Potassium 5.8 mmol/L (3.5-5.1)
--- NOTE | 2024-12-19 07:39 | CON.CAR ---
Addendum entered and electronically signed by Milind Irwin MD 12/19/24 12:05:
I saw and examined the patient.
The EXTERIOR DOOR INSTALLER or PA's note was reviewed and I agree with the note.
Comment: General: Well developed, well nourished in NAD.
Neck: Supple, no JVD, HJR, carotids +2 B/L, no bruits bilaterally.
Heart: Non displaced PMI, irregular, no murmurs, No S3, S4, no rubs.
Lungs: Scattered rhonchi
Abdomen: Normal bowel sounds, soft, non-tender, non-distended.
Extremities: No clubbing, cyanosis or edema bilaterally.
Neuro: Grossly nonfocal, awake, alert and oriented x3.
Yessy has a history of permanent atrial fibrillation, hypertension, sick sinus syndrome status post Medtronic pacer. She presented with increasing shortness of breath and multiple lab abnormalities including elevated lactic acid level and renal
insufficiency. Cardiology was consulted for rapid atrial fibrillation. Heart rate now is controlled on IV Cardizem.
Will attempt to discontinue IV Cardizem and restart Coreg which may have been stopped at some point. Eliquis on hold with anemia. Lasix on hold with renal insufficiency.
Original Note:
Consultation
Consultation Request
Date/Time Consultation Requested: 12/19/24 at 0006
Date/Time Consultation Performed: 12/19/24 at 0722
Requesting Provider: Dr. Aguirre
Performing Provider: Dr. Irwin
Reason for Consultation: Permanent Afib with RVR on admission, elevated Troponin
Medical History
-
History of Present Illness:
Patient came to [facility] last night with increased SOB and abnormal pulse ox readings at home and was admitted with multiple lab study abnormalities and cardiology is consulted for rapid Afib. Patient previously followed with a access director in [place] for
h/o permanent A-fib, HTN and having a Medtronic DC PPM in place. Patient was last seen in our office on 11/06/2023 and at that time appeared euvolemic and her device was checked that showed ongoing permanent A-fib. HR previously controlled with
Coreg 3.125 mg BID and digoxin 0.125 mg daily, but these are no longer on her med list. She is also chronically on Eliquis 5 mg BID. Patient says that she has been feeling chills on and off for the last 3 to 4 weeks along with increasing SOB
described as BLISS and then resting SOB in the last 1 to 2 days. She did not check her temp at home. Our office received a call on 12/15/2024 from the VN that the patient's HR was increased after working with PT. Because patient has a Medtronic PPM in
place we attempted to perform download and to walk the patient and her VN through this process, but they were unable. We then set the patient up for remote download and have been awaiting the results. In the meantime the patient's son-in-law was
at patient's independent living apartment at [facility] last night and patient complained of SOB and when they tried to check her pulse ox it was unable to read and the HR looked fast. In [facility] ER the patient was noted to be in A-fib with
RVR. She also had multiple abnormal lab studies including a lactic acid level of is initially 10.8, a potassium that was 6.5 with a CO2 level of 7 and a creatinine of 2.0. Also her total bilirubin was up to 3 with elevated LFTs and an initial
troponin of 0.051. She also had edema over her abdominal wall without any obvious LE edema, but she does have significant healing excoriations over her B/L LE which she says are from her picking. Patient was given doses of IV antibiotics in the
ER, but IVF were held due to concern for possible acute HF based on the abdominal wall edema and a proBNP of 15,200 although CXR was read as no acute disease. Patient reports she has been compliant with her usual dose of Lasix 20 mg daily at home,
but interestingly as of 11/06/2023 we thought that she was on Lasix 60 mg daily plus a as needed dose of metolazone.
PMH:
Chronic HFpEF
Permanent Afib
Chronic Eliquis OAC
Medtronic DC PPM
Bipolar disorder
Anxiety
B/L LE excoriations
Past Medical History
Past Medical History: Other (in HPI)
Past Surgical History: Other (thyroid surgery)
Social History
Tobacco: Non-Smoker
Alcohol: None
Drug: None
Personal:
Living: Alone (independent living at [facility])
Family History
Family History: Reviewed & Not Pertinent
Allergies / Home Medications
Allergy/AdvReac Type Severity Reaction Status Date / Time
No Known Allergies Allergy Verified 06/29/23 11:21
�Medication �Instructions �Recorded �Confirmed �Type
apixaban 5 mg tablet (Eliquis) 5 mg PO BID Blood clot 03/30/23 12/18/24 History
prevention/tx
omeprazole 40 mg capsule,delayed 40 mg PO BID Gastrointestinal issue 03/30/23 12/18/24 History
release
potassium chloride 10 mEq 20 meq PO DAILY Electrolyte 03/30/23 12/18/24 History
capsule,extended release Repletion
ropinirole 1 mg tablet 1 mg PO BID Neurological Condition 03/30/23 12/18/24 History
aspirin 81 mg tablet,delayed 81 mg PO DAILY 12/16/23 12/18/24 History
release
duloxetine 30 mg capsule,delayed 30 mg PO BID 12/16/23 12/18/24 History
release
acetaminophen 650 mg 1,300 mg PO DAILYPRN PRN mild pain 12/18/24 12/18/24 History
tablet,extended release
cholecalciferol (vitamin D3) 50 50 mcg PO DAILY 12/18/24 12/18/24 History
mcg (2,000 unit) tablet (Vitamin
D3)
folic acid 1 mg tablet 1 mg PO DAILY 12/18/24 12/18/24 History
furosemide 20 mg tablet (Lasix) 20 mg PO DAILY 12/18/24 12/18/24 History
hydroxyzine pamoate 25 mg capsule 25 mg PO BIDPRN PRN ANXIETY 12/18/24 12/18/24 History
loperamide 2 mg tablet 2 mg PO Q6H PRN diarrhea 12/18/24 12/18/24 History
magnesium oxide 400 mg PO DAILY 12/18/24 12/18/24 History
Review of Systems
-
History Source: Patient
All other systems: Negative unless noted
Physical Exam
Vital Signs
Temp Pulse Resp BP Pulse Ox
98.1 F 90 19 105/92 93
12/19/24 03:30 12/19/24 06:15 12/19/24 06:15 12/19/24 06:00 12/19/24 06:15
GEN: NAD. AAOx3
HEENT: EOMI, MMM
LUNGS: RA. CTA B/L without wheeze or rales
CV: Afib on tele. Irreg irreg, S1/S2, no murmur
ABD: soft, BS+, NT, ND
EXT: No clubbing, cyanosis or edema B/L. B/L LE excoriations, mostly below the knee
NEURO: Gross non-focal
SKIN: Warm, dry and pink. No rash
Lab Results
12/19/24 05:12
Troponin I 0.124 ng/ml H* D 12/19/24 05:12
[id number] Pept 37542 pg/ml 12/18/24 19:49
Impression / Plan
-
PCP: Dr. Ramya Chaves
Card: Dr. Cruz
Impression:
Admitted with hypoglycemia, hyperkalemia, lactic acidosis and rapid Afib 12/18/24
Lactic acidosis, 10.6 on admission 12/18/24 PM
Hyperkalemia
ED
Abdominal wall edema without LE edema
Chronic HFpEF
Leukocytosis
Anemia of chronic disease
Afib with RVR
Permanent Afib
Chronic Eliquis OAC
Medtronic DC PPM
Bipolar disorder
Anxiety
B/L LE excoriations
Echo 04/08/2023: EF 55 to 60%, mild concentric LVH, mild to moderate MR, mild TR
Plan:
-Patient came to [facility] last night with increased SOB and abnormal pulse ox readings at home and was admitted with multiple lab study abnormalities and cardiology is consulted for rapid Afib. Patient previously followed with a access director in [place] for
h/o permanent A-fib, HTN and having a Medtronic DC PPM in place. Patient was last seen in our office on 11/06/2023 and at that time appeared euvolemic and her device was checked that showed ongoing permanent A-fib. HR previously controlled with
Coreg 3.125 mg BID and digoxin 0.125 mg daily, but these are no longer on her med list. She is also chronically on Eliquis 5 mg BID. Patient says that she has been feeling chills on and off for the last 3 to 4 weeks along with increasing SOB
described as BLISS and then resting SOB in the last 1 to 2 days. She did not check her temp at home. Our office received a call on 12/15/2024 from the VN that the patient's HR was increased after working with PT. Because patient has a Medtronic PPM in
place we attempted to perform download and to walk the patient and her VN through this process, but they were unable. We then set the patient up for remote download and have been awaiting the results. In the meantime the patient's son-in-law was
at patient's independent living apartment at [facility] last night and patient complained of SOB and when they tried to check her pulse ox it was unable to read and the HR looked fast. In ER the patient was noted to be in A-fib with
RVR. She also had multiple abnormal lab studies including a lactic acid level of is initially 10.8, a potassium that was 6.5 with a CO2 level of 7 and a creatinine of 2.0. Also her total bilirubin was up to 3 with elevated LFTs and an initial
troponin of 0.051. She also had edema over her abdominal wall without any obvious LE edema, but she does have significant healing excoriations over her B/L LE which she says are from her picking. Patient was given doses of IV antibiotics in the
ER, but IVF were held due to concern for possible acute HF based on the abdominal wall edema and a proBNP of 15,200 although CXR was read as no acute disease. Patient reports she has been compliant with her usual dose of Lasix 20 mg daily at home,
but interestingly as of 11/06/2023 we thought that she was on Lasix 60 mg daily plus a as needed dose of metolazone.
-ECG reviewed by me shows Afib with RVR. Tele looks like rate controlled Afib
-Cardizem gtt at 10 mg/hr, will reduce to 5 mg/hr and work to d/c gtt today
-Med rec from the ER no longer lists previous doses of Coreg 3.125 twice daily and digoxin 0.25 mg daily. It is unclear when these were stopped or why. Patient has not been seen in the office for over 1 year
-Will restart Coreg now while working to discontinue the Cardizem gtt.
-Patient reportedly continues to take Eliquis 5 mg twice daily as an outpatient and this is currently on hold due to anemia.
-pro-BNP elevated, but no evidence of acute HF on CXR read by radiology and edema is centered on abdomen. Patient was previously on Lasix 60 mg daily plus PRN metolazone, but now only on Lasix 20 mg daily. Also with ED. IVFs for possible sepsis
held on admission and Lasix on hold now as well for ED.
[2024-12-19] MEDS: CARDIZEM 125 IV ×2 (07:51→20:42)
[2024-12-19] MEDS: PROTONIX IV 40 MG IV (07:51)
[2024-12-19] MEDS: NSS (PRESERVATIVE FREE) 10 ML IV (07:51)
--- NOTE | 2024-12-19 08:35 | PTCARENOTE ---
Received pt awake and alert.Speech is appropriate.Denies pain.+4-5/5 TORRES.Assists with repositioning.A Fib noted.Cardizem gtt and IVF infusing.Heparin on hold for PTT assessment.Lungs CTA.POX 94% on RA.+ BLISS noted.NPO.c/o hunger.Arias draining yellow
urine.Multiple scabbed and reddened areas all over skin fro pt 'picking'.Fungal redness and odor noted bl axilla and groin.Left axilla extremely reddened and bruised.Abdomen looks cellulitic.Plan of care discussed.
[2024-12-19 11:01] LABS: Blood Urea Nitrogen 56 mg/dl (7-17); Calcium 8.6 mg/dl (8.4-10.2); Carbon Dioxide 21 mmol/L (22-30); Chloride 107 mmol/L (98-107); Estimated Creatinine Clearance 22 ml/min; Glucose 115 mg/dl (70-99); Potassium 5.5 mmol/L (3.5-5.1); Sodium 142 mmol/L (135-145); eGFR 24.64
--- NOTE | 2024-12-19 11:15 | WOUNDNOTE ---
ANTERIOR THIGHS AND ABDOMEN
--- NOTE | 2024-12-19 11:16 | WOUNDNOTE ---
R THIGH AND POSTERIOR LEGS/HEELS
--- NOTE | 2024-12-19 11:17 | WOUNDNOTE ---
R LATERAL LOWER LEG
--- NOTE | 2024-12-19 11:20 | WOUNDNOTE ---
WON RN note: Patient admitted with acute heart failure.
See H&P for complete history.
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
Wound Location and type/assessment: Patient known to service, last seen 03/31/23. R lateral leg wound essentially healed, dry scab at site. Limbs and face scattered scabs, much improved since last seen. Patient confirmed she still picks at scabs
despite being repeatedly instructed not to. L axilla and abdomen/groin skin folds with dry pink skin/ appears fungal in nature. fungal powder in use and recently applied by nurse Lehman. Patient unable to lift L arm due to rotator cuff injury in past,
suspect moisture became trapped there. Heels and sacrum are intact.
Appetite:NPO
Pressure redistribution devices in place: On Centrella air, turns self.
Plan: Will order mineral oil to start tomorrow for dry skin on legs. R lateral leg applied Xeroform and silicone foam. continue fungal powder in skin folds and L Axilla. Will confirm orders with hospitalist and updated nurse Lehman.
Updated care plan and will follow as needed.
Note to case management of equipment requested for discharge: VN if unable to do own wound care.
Recommend follow up at wound care center upon discharge.
--- NOTE | 2024-12-19 11:38 | CON.INTV ---
Addendum entered and electronically signed by Ally Galindo MD 12/19/24 15:45:
Patient seen and examined independently by myself. Resident note reviewed below, agree with assessment and plan
Briefly, pleasant 79-year-old female with history of atrial fibrillation, anemia, restless leg syndrome who presents with worsening shortness of breath, lightheadedness. Upon arrival she was found to be in rapid atrial fibrillation. She was also
found to be anasarcic in the ED. She was given a dose of Lasix but also given Cardizem. She was admitted to ICU for further management. Of note she does have a history of thyroid nodules
Past medical history, social history, family history, review of systems as below
Physical exam
Patient is comfortable, currently on room air
Chest exam with slight decreased breath sounds at the base, no wheezing, no crackles
Cardiac exam irregular rate and rhythm, no murmurs
Abdominal exam soft, nontender
Chronic venous stasis changes of lower extremities,
neurologically moves all 4 extremities, cranial nerves grossly intact
Scattered skin lesions noted
Data reviewed
White count 22.7
PTT elevated greater than 200, on heparin therapy
Hyperkalemia noted, follow-up improved to 5.3
Creatinine 2.0, stable at 1.9. Of note creatinine was normal 12/16/2023
CXR without acute findings
ABD CT with bilateral small pleural effusions. No obvious pneumonia, there may be a component of fluid overload. There is mild amount of ascites
A/P
Moving forward, continue with current rate control, heart rate improved on Cardizem drip, being weaned
Dopplers pending
Echocardiogram pending
Follow electrolytes, potassium improved
Trend troponins
TSH normal
DVT prophylaxis: Was on outpatient anticoagulation. Will discontinue heparin and resume Eliquis p.o. 2.5 mg twice a day adjusted for renal function
Reviewed with critical care nursing, respiratory care, pharmacy, case management
TCCT 32 min
Original Note:
Consultation
Consultation Request
Date/Time Consultation Requested: 12/19/2024
Date/Time Consultation Performed: 12/19/2024
Requesting Provider: Clem Aguirre
Performing Provider: Ally Galindo
Reason for Consultation: Lactic acidosis/ED
Medical History
-
Chief Complaint: Worsening shortness of breath
History of Present Illness:
Patient is an 79-year-old female with past medical history of paroxysmal atrial fibrillation, chronic heart failure with preserved ejection fraction, bipolar disorder, anemia of chronic disease, restless leg syndrome, diarrhea predominant IBS, GERD,
who presented to the ER with worsening shortness of breath and decreased urinary frequency and volume.
As per the patient she has heart failure, and takes Lasix 20 mg twice daily, she was concerned about decreased urinary frequency along with worsening shortness of breath and she presented to the ER. She also admits to having frequent diarrhea
episodes and uses loperamide on a as needed basis. She lives in an assisted living and reports that many members were having GI symptoms. She denied any recent travel, recent hospitalization or antibiotic use.
She denied any other complaints, no cough, no chest pain, palpitations, fever, chills, nausea, vomiting, abdominal pain, body aches, or burning micturition.
Based on the workup in the ER, she was found to be in fast A-fib and was started on Cardizem, her heart rate has stabilized now and cardiology plans to wean her off Cardizem.
She had neck swelling for which she underwent a thyroid ultrasound in Mar, 2024 that revealed mixed solid and cystic nodules in right and left lobes and also a large solid hypoechoic left lateral neck soft tissue mass measuring 5 x 4 x 4.6 without
internal color flow. As per the patient, compressive symptoms are negative, she denies any dysphagia or hoarseness of voice. She is not fully aware of the full workup.
She also has bipolar disorder, takes hydroxyzine and duloxetine for anxiety, has picking habit, evident with scratch novak on face and legs. She also has restless leg syndrome and uses ropinirole 1 mg twice daily.
As per the patient she did not sleep well due to her restless legs and itching.
As per her lab work, patient has acute kidney injury, her baseline creatinine is 0.6-0.7 elevated to 2, with hyperkalemia, hyperphosphatemia, itching could be secondary to that as well.
Past Medical History
Past Medical History: Arrhythmias (Paroxysmal atrial fibrillation), CHF (Heart failure with preserved ejection fraction), GERD, Psychiatric (Bipolar disorder, 88, restless leg syndrome) and Other (Irritable bowel syndrome-diarrhea predominant,
melanoma? Multinodular thyroid)
Past Surgical History: Cardiac (Permanent pacemaker) and Orthopedic (Carpal tunnel release, thyroid surgery)
Social History
Tobacco: Non-smoker
Alcohol: None
Drug: None
Living: Assisted Living
Family History
Family History: Reviewed & Not Pertinent
Allergies / Home Medications
Allergies
Allergy/AdvReac Type Severity Reaction Status Date / Time
No Known Allergies Allergy Verified 06/29/23 11:21
Home Medications
�Medication �Instructions �Recorded �Confirmed �Last Taken �Type
apixaban 5 mg tablet (Eliquis) 5 mg PO BID Blood clot 03/30/23 12/18/24 12/18/24 History
prevention/tx
omeprazole 40 mg capsule,delayed 40 mg PO BID Gastrointestinal issue 03/30/23 12/18/24 12/18/24 History
release
potassium chloride 10 mEq 20 meq PO DAILY Electrolyte 03/30/23 12/18/24 12/18/24 History
capsule,extended release Repletion
ropinirole 1 mg tablet 1 mg PO BID Neurological Condition 03/30/23 12/18/24 12/18/24 History
aspirin 81 mg tablet,delayed 81 mg PO DAILY Blood Clot 12/16/23 12/18/24 12/18/24 History
release Prevention/Tx
duloxetine 30 mg capsule,delayed 30 mg PO BID Mental Health/Anxiety 12/16/23 12/18/24 12/18/24 History
release
acetaminophen 650 mg 1,300 mg PO DAILYPRN PRN mild pain 01/12/18/24 12/18/24 History
tablet,extended release
cholecalciferol (vitamin D3) 50 50 mcg PO DAILY Supplement 12/18/24 12/18/24 12/18/24 History
mcg (2,000 unit) tablet (Vitamin
D3)
folic acid 1 mg tablet 1 mg PO DAILY Supplement 12/18/24 12/18/24 12/18/24 History
furosemide 20 mg tablet (Lasix) 20 mg PO DAILY Fluid 12/18/24 12/18/24 12/18/24 History
Retention/Swelling
hydroxyzine pamoate 25 mg capsule 25 mg PO BIDPRN PRN ANXIETY 12/18/24 12/18/24 12/18/24 History
loperamide 2 mg tablet 2 mg PO Q6H PRN diarrhea 12/18/24 12/18/24 12/16/24 History
magnesium oxide 400 mg PO DAILY Electrolyte 12/18/24 12/18/24 12/18/24 History
Repletion
Review of Systems
-
History Source: Patient
Constitutional: Fatigue and Sleep Disturbance (Due to restless leg syndrome)
EENT: No Symptoms
Respiratory: Trouble Breathing
Cardiac: No Symptoms
Abdomen/GI: Diarrhea (On and off)
Musculoskeletal: No Symptoms
Skin: No Symptoms
Neuro: No Symptoms
Endocrine: No Symptoms
Hematologic/Lymphatic: No Symptoms
Vitals / Labs / Diagnostic Testing
Vital Signs
Temp Pulse Resp BP Pulse Ox
98.6 F 92 20 98/76 93
12/19/24 08:00 12/19/24 08:21 12/19/24 08:21 12/19/24 08:21 12/19/24 08:21
Lab Data
12/19/24 05:12
Laboratory Results
12/18/24 12/18/24 12/19/24
19:49 20:46 00:21
PT 29.3 H
INR 2.78
APTT 36.6 H
pH 7.23 L
pCO2 23 L
pO2 94
HCO3 9.6 L*
O2 Delivery Level
12/19/24
06:38
PT
INR
APTT > 200.0 H*
pH
pCO2
pO2
HCO3
O2 Delivery Level
Microbiology
12/18/24 19:49 Nasal Swab Influenza Types A & B ([facility]) - Final
Negative for Influenza A & B, NAAT
Negative results must be combined with clinical observations
and patient history.
Nucleic Acid Amplification test (NAAT)performed on the
[employer] platform.
Diagnostic Testing:
Physical Exam
-
HEENT: Normocephalic, Anicteric and Other (Red scratch novak on face)
Cardiovascular: S1/S2 and Irregular Rhythm
Respiratory: Clear and Non-Labored Respirations
GI: Soft, Non Distended, Non Tender and Normal Bowel Sounds
Neurology: Awake, Oriented and No Motor Deficits
Skin: Other (Bilateral stasis dermatitis, scratch novak on arms and legs)
General: Other (Conversant, restless legs, pleasant)
Assessment
-
Impression
Ms. Stephania Krishnamurthy, 79-year-old female, non-smoker resident of an assisted living, past medical history significant for paroxysmal atrial fibrillation, chronic heart failure with preserved ejection fraction, diarrhea predominant IBS, bipolar disorder
and restless leg syndrome, presented with worsening shortness of breath and decreased urinary frequency and volume despite using furosemide 20 mg twice daily.
Workup showed for A-fib with RVR, ED with serum creatinine of 2, hyperkalemia, hyperphosphatemia, lactic acidosis, increased proBNP. Patient where very dehydrated with dry mucous membranes on presentation. Admitted to ICU for management of
ED/A-fib with RVR/lactic acidosis.
Assessment
# ED
# Lactic acidosis/increased anion gap metabolic acidosis
# Chronic heart failure with preserved ejection fraction
# Paroxysmal atrial fibrillation with rapid ventricular response
# Hyperkalemia
# Hyperphosphatemia
# Hypomagnesemia
Plan
# ED
Patient has no past medical history of kidney disease
On admission, creatinine2, severe lactic acidosis of 10.8, with unclear etiology
Could be related to stress/dehydration/poor intake or starvation
Give IV fluids and monitor serum creatinine, at the same time be mindful of heart failure exacerbation
Follow blood cultures
CT abdomen pelvis showed moderate right and left small pleural effusions, mild bibasilar groundglass opacification concerning for pneumonia, third spacing with volume overload, mild diverticulosis, fat-containing abdominal hernia
Clinically patient does not appear to be in volume overload
Given the recent kidney injury, and dry mucous membranes hold on further Lasix and wait for cardiology recommendations
Echo 2022
Normal left ventricular size and systolic function, left ventricular ejection fraction 55 to 60%, mild to moderate MR and TR
Update echocardiography
# Lactic acidosis/increased anion gap metabolic acidosis
Patient presented with severe lactic acidosis of 10.8
Patient had rapid A-fib and dry mucous membranes on presentation
Received normal saline bolus
Single dose of vancomycin and cefepime
Currently lactic acidosis down to 2.7
Continue to monitor
# Chronic heart failure with preserved ejection fraction
As per last echo done in 2022, patient's left ventricular ejection fraction is 55 to 60%, mild to moderate MR and TR
Update echo
Patient received a single dose of 40 mg Lasix in the ER
CT abdomen/pelvis shows third spacing of fluid, clinically patient asymptomatic, appears very dry, recent ED, continue to monitor RFT's, hold on further Lasix at this time and await cardiology recommendations
# Paroxysmal atrial fibrillation with rapid ventricular response
Patient has history of paroxysmal atrial fibrillation
Presented in ER with irregular rhythm and heart rate of 160
Started on Cardizem infusion
Currently heart rate is controlled, Taper Cardizem as able
Hold heparin, resume diet and oral medications including Eliquis
# Leukocytosis
Could be secondary to underlying infectious process/reactive to stress/dehydration
Received single dose of cefepime and vancomycin in ER
Follow blood and urine cultures
Continue to monitor
# Hyperkalemia
Patient received the potassium regimen in ER for a potassium of 6.5 including bicarb, insulin, and calcium gluconate
Repeat potassium levels show a potassium of 5.5
Continue to monitor
# Hyperphosphatemia
Phosphorus 6.2, possibly secondary to renal injury
Continue to monitor
# Hypomagnesemia
Patient had a magnesium of 1, received 4 g of magnesium as repletion
Repeat BMP
Continue to monitor
Other medical conditions
Restless leg syndrome-continue ropinirole
GERD-continue omeprazole
Anxiety-continue duloxetine as able
Chronic heart failure with preserved ejection fraction-resume diuretics as able
IBS-Diarrhea dominant-treat as needed
Anemia of chronic disease-monitor hemoglobin levels
CODE STATUS -DNR
DVT prophylaxis-Eliquis 5 mg twice daily
GI prophylaxis-Protonix 40 mg per oral twice daily
--- NOTE | 2024-12-19 12:36 | PTCARENOTE ---
Pt assessed.No change in assessment noted.
[2024-12-19] MEDS: CYMBALTA DELAYED RELEASE 30 MG PO (13:39)
[2024-12-19] MEDS: PROTONIX 40 MG PO ×2 (13:39→20:42)
[2024-12-19] MEDS: ELIQUIS 2.5 MG PO ×2 (13:39→22:49)
[2024-12-19 14:36] LABS: Blood Urea Nitrogen 56 mg/dl (7-17); Calcium 8.6 mg/dl (8.4-10.2); Carbon Dioxide 21 mmol/L (22-30); Chloride 106 mmol/L (98-107); Estimated Creatinine Clearance 23 ml/min; Glucose 167 mg/dl (70-99); Magnesium 2.1 mg/dl (1.6-2.3); Potassium 5.3 mmol/L (3.5-5.1); Sodium 141 mmol/L (135-145)
[2024-12-19 14:37] LABS: Troponin I 0.105 ng/ml
--- NOTE | 2024-12-19 15:23 | CM ---
CM following rte: discharge planning.
Reviewed pt's chart, met with pt.
Pt is an 79 year old female admitted with primary dx of SOB
Pt reports she lives alone in an independent apartment at [facility], has 3 supportive living children, 3 other children . Emotional support offered and provided. Pt reports she ambulates with a Rollator at baseline and known to [facility]. Pt expressed her desire to return back to [facility] with [facility].
PT and OT will evaluate the pt to determine a level of care at discharge.
PCP: Ramya Chaves
Pharmacy: [facility].
D/C plan: back to [facility] with [facility] and family support.
CM will follow with discharge plan updates as hospitalization progresses
--- NOTE | 2024-12-19 16:35 | PTCARENOTE ---
Pt assessed.No change in assessment noted.Cardizem weaned to 5 mg for heart rate 74.
--- NOTE | 2024-12-19 17:54 | W.PN.HOSP.TC ---
Today's Communication/Plan
-
Assessment / Plan
Assessment / Plan
Gen-AAOx3, NAD
HEENT-NC, AT, anicteric, clear oral mm
Neck-supple
CV-reg, no M, +S1/S2
Lungs-clear B/L
Abd-soft, NT, ND
Musculoskeletal-no edema, no deformity
Skin-warm and dry, chronic skin changes bilateral lower extremities
Neuro-grossly non-focal, no tremor
Psych-calm, cooperative
Ms. Cat is an 79-year-old female with a medical history of A-fib, sick sinus syndrome ([employer] pacemaker), CHF, bipolar disorder, and anemia who presented with shortness of breath and dizziness. She was found to be in A-fib with RVR. She has
been started on diltiazem drip. She was also found to have significantly elevated lactic acid of 10 with a bicarb deficit. She was admitted to the ICU for further management on bicarb drip and titratable diltiazem drip.
A-fib with RVR:
-Now well-controlled on diltiazem drip, titrate off as able
-Restarted anticoagulation with low-dose Eliquis
-Cardiology following
ED:
-Continue IV fluids
-Monitor renal function
Lactic acidosis:
-Continue IV fluids with bicarb
-Clinically stable
-Continue to monitor
Chronic HFpEF:
-Now with reduced ejection fraction
-Echocardiogram today 12/19 shows reduced ejection fraction of 40 to 45% with global hypokinesis (previous LVEF was 55 to 60% in March 2023), diastolic dysfunction unable to be determined due to A-fib, mitral regurgitation appears to have worsened to
moderate to severe
-Currently holding diuretic due to renal dysfunction
-Cardiology following, will likely restart beta-blockade with carvedilol
Skin lesions:
-Appear chronic, likely secondary to anxiety disorder with history of picking
-Wound care following
-No evidence of acute infection
CODE STATUS: DNR/DNI
Anticipated Discharge: > 48 hours
Subjective/Interval History
-
Date of Service: December 19, 2024
Ms. Cat was seen and examined in the ICU this morning. She is currently comfortable and ordering breakfast. No complaints.
Objective Data
-
Labs:
Laboratory Results
12/19/24 12/19/24 12/19/24
05:12 06:38 10:16
APTT > 200.0 H*
Sodium 144 142
Potassium 5.8 H 5.5 H
Chloride 111 H 107
Carbon Dioxide 15 L 21 L
BUN 52 H 56 H
Creatinine 1.9 H 2.0 H
Glucose 126 H 115 H
Calcium 8.8 8.6
Total Bilirubin 1.7 H D
AST 95 H
ALT 40 H
Alkaline Phosphatase 88
12/19/24
13:59
APTT
Sodium 141
Potassium 5.3 H
Chloride 106
Carbon Dioxide 21 L
BUN 56 H
Creatinine 1.9 H
Glucose 167 H
Calcium 8.6
Total Bilirubin
AST
ALT
Alkaline Phosphatase
Vital Signs:
Vital Signs
Temp Pulse Resp BP Pulse Ox
98.6 F 78 18 127/95 96
12/19/24 08:00 12/19/24 17:30 12/19/24 17:30 12/19/24 17:01 12/19/24 17:30
I&O
12/18/24 12/19/24 12/20/24
06:59 06:59 06:59
Intake Total 1150 / 1360 1925 / 1925
Output Total 460 / 490 350 / 350
Balance 690 / 870 1575 / 1575
Review of Systems
-
History Source: Patient
All other systems: Reviewed and negative
Physical Exam
-
General: No Apparent Distress
[2024-12-19 18:31] LABS: Lactic Acid 1.2 mmol/L (0.7-2.0)
[2024-12-19 18:32] LABS: Blood Urea Nitrogen 58 mg/dl (7-17); Calcium 8.9 mg/dl (8.4-10.2); Carbon Dioxide 21 mmol/L (22-30); Chloride 105 mmol/L (98-107); Estimated Creatinine Clearance 25 ml/min; Glucose 131 mg/dl (70-99); Potassium 4.9 mmol/L (3.5-5.1); Sodium 138 mmol/L (135-145); eGFR 29.94
--- NOTE | 2024-12-19 20:30 | PTCARENOTE ---
Patient received resting in bed eating dinner. Patient's son at Bedside. Patient A+A+Ox3. No neurological deficits noted. No c/o headache, dizziness or lightheadedness. O2 at 2L via NC. SpO2 98%. No s/s of respiratory distress. Pacemaker.
Atrial Fibrillation. Heart rate 70-80's. Blood pressure 117/62 (80). Cardizem gtt at 5mg/hr (2.5 ml/hr). IVF 0.45% NaCl with 75 mEq Sodium Bicarbonate at 100 ml/hr. Abdomen soft, nontender. Normoactive bowel sounds. No BM. No c/o nausea. No
vomiting. Arias catheter - Temperature sensing - Yellow urine - Outputs at documented. No c/o pain or discomfort. Assessment as documented.
[2024-12-19 23:32] LABS: Blood Urea Nitrogen 59 mg/dl (7-17); Calcium 8.4 mg/dl (8.4-10.2); Carbon Dioxide 22 mmol/L (22-30); Chloride 104 mmol/L (98-107); Estimated Creatinine Clearance 27 ml/min; Glucose 154 mg/dl (70-99); Potassium 4.8 mmol/L (3.5-5.1); Sodium 137 mmol/L (135-145)
[2024-12-20] VITALS (16 sets, daily range): BP systolic 98–135; BP diastolic 54–96; PULSE 81; O2SAT 96; BMI 30.9
--- NOTE | 2024-12-20 01:00 | PTCARENOTE ---
Patient sleeping without difficulty. Assessment/Interventions as documented.
[2024-12-20] MEDS: SODIUM BICARBONATE 1075 MEQ IV (01:14)
[2024-12-20] MEDS: TYLENOL 650 MG PO ×2 (01:14→13:03)
--- NOTE | 2024-12-20 06:00 | PTCARENOTE ---
Patient A+A+Ox3. No neurological deficits noted. AM labs collected and sent. Patient given CHG bath and linens changed. No c/o pain or discomfort. Assessment/Interventions as documented.
[2024-12-20 06:06] LABS: Hematocrit 28.7 % (37.0-47.0); Hemoglobin 8.3 g/dL (12.0-16.0); Mean Corp Hgb Conc. 28.9 g/dL (33.0-37.0); Mean Corpuscular Hgb 21.3 pg (27.0-31.0); Mean Corpuscular Volume 73.6 fL (81.0-99.0); Mean Platelet Volume 11.1 fL (7.4-10.4); Platelet Count 295 10^3/uL (130-400); Red Cell Dist. Width 16.8 % (11.5-14.5); White Blood Cell Count 16.6 10^3/uL (4.8-10.8)
[2024-12-20 06:14] LABS: Blood Urea Nitrogen 58 mg/dl (7-17); Calcium 8.3 mg/dl (8.4-10.2); Carbon Dioxide 24 mmol/L (22-30); Chloride 106 mmol/L (98-107); Estimated Creatinine Clearance 31 ml/min; Glucose 130 mg/dl (70-99); Potassium 4.4 mmol/L (3.5-5.1); Sodium 140 mmol/L (135-145)
[2024-12-20 08:46] LABS: Glucose - Point of Care 121 mg/dl (70-99)
[2024-12-20] MEDS: CYMBALTA DELAYED RELEASE 30 MG PO ×2 (08:59→20:03)
[2024-12-20] MEDS: REQUIP 1 MG PO ×2 (08:59→20:04)
[2024-12-20] MEDS: ELIQUIS 2.5 MG PO ×2 (08:59→20:04)
[2024-12-20] MEDS: PROTONIX 40 MG PO ×2 (08:59→20:04)
[2024-12-20] MEDS: HYDROPHOR 1 APPLIC TOPICAL (09:00)
--- NOTE | 2024-12-20 09:00 | PTCARENOTE ---
Rec'd care of patient at 0700. Patient alert and oriented. Drowsy. Patient encouraged to try and get out of bed to chair later in shift. PT/OT consult obtained. Afib on tele monitor. Rate controlled in the 70-80's. Trace edema in b/l LE. Palpable
pulses. Pulse ox 98% on 2L nc. Weaned to RA. Lung sounds diminished in b/l base. Expiratory wheeze present. BLISS. No BM. Arias in place for critical I/O. Output 30-50 cc/hr. Scattered scabs present throughout body. Mineral oil applied to b/l leg as
ordered. Peripheral INTs capped. Bicarb gtt off. Repeat labs ordered for 1600.
[2024-12-20] MEDS: COREG 3.125 MG PO ×2 (09:02→20:03)
--- NOTE | 2024-12-20 09:29 | PN.CDI ---
CDI
- -
CDI:
Physician Documentation Request
Admit Date: 12/18/24 22:58
Dear Doctor,
Please review the following and provide your response in the progress notes.
Clinical Indicators:
Pt admitted with Afib with RVR, lactic acidosis and ED.
Laboratory Tests
12/18/24 12/19/24 12/19/24
19:49 00:21 05:12
Troponin I 0.051 H* 0.078 H* D 0.124 H* D
12/19/24
13:59
Troponin I 0.105 H*
Based on the above, could you clarify in the progress notes, the appropriate diagnosis, if significant, that supports the above abnormalities and additional evaluation, monitoring and/or treatment rendered:
non-ischemic myocardial injury
Insignificant abnormal lab values
Other
Use of terms such as suspected, likely, concern for, or probable (associated with a specific diagnosis that is being evaluated, monitored, or treated as if it exists) are acceptable and can be coded in the inpatient setting, when documented at the
time of discharge.
Thank you,
Cynthia Grossman RN, BSN
CDI Specialist
[facility]
Please use your independent medical judgment in providing your response.
--- NOTE | 2024-12-20 09:44 | W.PN.CARDCBS ---
Today's Communication / Plan
-
Initially consulted for rapid A-fib which is well-controlled on Coreg and off of Cardizem
Ejection fraction mildly reduced at 40-45%
Continue Coreg
No ASHIA/ARB/Aldactone with renal sufficiency
Lasix on hold due to renal insufficiency
Follow hemoglobin on Eliquis
Impression / Plan
-
PCP: Dr. Ramya Chaves
Card: Dr. Cruz
Impression:
Admitted with hypoglycemia, hyperkalemia, lactic acidosis and rapid Afib 12/18/24
Lactic acidosis, 10.6 on admission 12/18/24 PM
Cardiomyopathy with ejection fraction of 40-45% 12/19/2024
Moderate to severe MR
Moderate TR with PA systolic pressure 54 mmHg
ED
Abdominal wall edema without LE edema
Chronic HFpEF
Leukocytosis
Anemia of chronic disease
Afib
Permanent Afib
Chronic Eliquis OAC
Medtronic DC PPM
Bipolar disorder
Anxiety
B/L LE excoriations
Echocardiogram 12/19/2024: Ejection fraction 40 to 45%, global hypokinesis, moderate TR with PA systolic pressure 54 mmHg, moderate to severe MR
Echo 04/08/2023: EF 55 to 60%, mild concentric LVH, mild to moderate MR, mild TR
Plan:
Heart rate control reasonable on Coreg and off of IV Cardizem
Ejection fraction is mildly reduced and of note patient was on Coreg and digoxin in the past and Coreg has been restarted
Lasix on hold due to renal insufficiency with no obvious CHF by examination
No ASHIA/ARB/Aldactone with renal insufficiency
Will need to reassess MR and follow as an outpatient
Follow hemoglobin which is decreased to 8.3 on 12/20 on Eliquis
PREADMIT DATA
-Patient came to [facility] last night with increased SOB and abnormal pulse ox readings at home and was admitted with multiple lab study abnormalities and cardiology is consulted for rapid Afib. Patient previously followed with a sharepoint manager in [place] for
h/o permanent A-fib, HTN and having a Medtronic DC PPM in place. Patient was last seen in our office on 11/06/2023 and at that time appeared euvolemic and her device was checked that showed ongoing permanent A-fib. HR previously controlled with
Coreg 3.125 mg BID and digoxin 0.125 mg daily, but these are no longer on her med list. She is also chronically on Eliquis 5 mg BID. Patient says that she has been feeling chills on and off for the last 3 to 4 weeks along with increasing SOB
described as BLISS and then resting SOB in the last 1 to 2 days. She did not check her temp at home. Our office received a call on 12/15/2024 from the VN that the patient's HR was increased after working with PT. Because patient has a Medtronic PPM in
place we attempted to perform download and to walk the patient and her VN through this process, but they were unable. We then set the patient up for remote download and have been awaiting the results. In the meantime the patient's son-in-law was
at patient's independent living apartment at [facility] last night and patient complained of SOB and when they tried to check her pulse ox it was unable to read and the HR looked fast. In [facility] ER the patient was noted to be in A-fib with
RVR. She also had multiple abnormal lab studies including a lactic acid level of is initially 10.8, a potassium that was 6.5 with a CO2 level of 7 and a creatinine of 2.0. Also her total bilirubin was up to 3 with elevated LFTs and an initial
troponin of 0.051. She also had edema over her abdominal wall without any obvious LE edema, but she does have significant healing excoriations over her B/L LE which she says are from her picking. Patient was given doses of IV antibiotics in the
ER, but IVF were held due to concern for possible acute HF based on the abdominal wall edema and a proBNP of 15,200 although CXR was read as no acute disease. Patient reports she has been compliant with her usual dose of Lasix 20 mg daily at home,
but interestingly as of 11/06/2023 we thought that she was on Lasix 60 mg daily plus a as needed dose of metolazone.
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
Subjective
Date of Service: December 20, 2024
No complaints
Objective
Labs:
12/20/24 05:39
12/20/24 05:39
Labs
Hgb 8.3 g/dL (12.0-16.0) L 12/20/24 05:39
Hct 28.7 % (37.0-47.0) L 12/20/24 05:39
Plt Count 295 10^3/uL (130-400) 12/20/24 05:39
PT 29.3 Sec (11.4-14.6) H 12/18/24 19:49
INR 2.78 12/18/24 19:49
APTT > 200.0 Sec (23.4-35.0) H* 12/19/24 06:38
Sodium 140 mmol/L (135-145) 12/20/24 05:39
Potassium 4.4 mmol/L (3.5-5.1) 12/20/24 05:39
BUN 58 mg/dl (7-17) H 12/20/24 05:39
Creatinine 1.4 mg/dL (0.6-1.0) H 12/20/24 05:39
Glucose 130 mg/dl (70-99) H 12/20/24 05:39
Troponins
12/18/24 12/19/24 12/19/24
19:49 00:21 05:12
Troponin I 0.051 H* 0.078 H* D 0.124 H* D
12/19/24
13:59
Troponin I 0.105 H*
Vital Signs and I&O:
Vital Signs
Temp Pulse Resp BP Pulse Ox
97.4 F 81 20 132/89 99
12/20/24 08:00 12/20/24 09:02 12/20/24 09:01 12/20/24 09:02 12/20/24 09:01
Vital Signs
Temp Pulse Resp BP Pulse Ox
97.4 F 81 20 132/89 99
12/20/24 08:00 12/20/24 09:02 12/20/24 09:01 12/20/24 09:02 12/20/24 09:01
Intake & Output
12/18/24 12/19/24 12/20/24 12/21/24
06:59 06:59 06:59 06:59
Intake Total 1150 / 1360 3490.0 / 3590.0 300 / 300
Output Total 460 / 490 990 / 1020 110 / 110
Balance 690 / 870 2500.0 / 2570.0 190 / 190
Physical Exam
Physical Exam
General: Well developed, well nourished in NAD.
Neck: Supple, no JVD, HJR, carotids +2 B/L, no bruits bilaterally.
Heart: Non displaced PMI, irregular, no murmurs, No S3, S4, no rubs.
Lungs: Scattered rhonchi
Extremities: No clubbing, cyanosis or edema bilaterally.
Neuro: Grossly nonfocal, awake, alert and oriented x3.
--- NOTE | 2024-12-20 09:45 | PN.CDI ---
CDI
- -
CDI:
Physician Documentation Request
Admit Date: 12/18/24 22:58
Dear Doctor,
Please review the following and provide your response in the progress notes.
Clinical Indicators:
Pt admitted with Rapid afib with RVR, lactic acidosis and ED
12/18 H&P: 'Paroxysmal Atrial Fibrillation with Rapid Ventricular Response'
12/19 Cardiology: 'Patient previously followed with a cane cutter in [place] for h/o permanent A-fib'
If possible, please clarify specificity regarding atrial fibrillation, such as:
Permanent atrial fibrillation - when a decision has been made to accept the presence of AF and there is no further attempt to restore or maintain sinus rhythm
Paroxysmal atrial fibrillation - terminates spontaneously or with intervention within 7 days of onset
Other - please specify
Use of terms such as suspected, likely, concern for, or probable (associated with a specific diagnosis that is being evaluated, monitored, or treated as if it exists) are acceptable and can be coded in the inpatient setting, when documented at the
time of discharge.
Thank you,
Cynthia Grossman RN, BSN
CDI Specialist
[place] [facility]
Please use your independent medical judgment in providing your response.
--- NOTE | 2024-12-20 11:00 | PTCARENOTE ---
Arias removed. DTV by 1700.
[2024-12-20 11:58] LABS: Glucose - Point of Care 186 mg/dl (70-99)
--- NOTE | 2024-12-20 12:11 | W.PN.INTV ---
Addendum entered and electronically signed by Ally Galindo MD 12/20/24 12:48:
Patient seen and examined independently by myself. Reviewed resident note below, agree with assessment and plan
Patient appears to be comfortable without complaints. Now off Cardizem drip.
Denies chest pain, abdominal pain, nausea. Urine output adequate
Physical exam unchanged
Chest is clear, abdominal exam is benign
No significant edema, chronic venous stasis changes, chronic skin changes noted
Data reviewed
Hemoglobin 8.3
Creatinine trending down, 1.4
White count trending down
Echocardiogram EF 40%, PA pressure 54, normal RV size and function, MR has worsened to moderate to severe
A/P
Moving forward, she continues to improve
Echocardiogram noted with decreased EF, worsening MR, pulmonary hypertension
Cardiology following
Transition to Coreg
Follow hemoglobin later p.m.
Cultures negative to date
Discontinue IV fluids
Eliquis dose decreased to 2.5 mg twice a day for renal function and age
Consider increasing back to 5 mg twice a day prior to discharge
Okay for transfer out of ICU
We will sign off. Please call with questions
Original Note:
Today's Communication / Plan
Recommendations
Repeat CBC
Type and C/M
continue to chart wbc and temperature
Continue to monitor serum ccreatinine,lactic acid and bicarb
can be downgraded
Assessment
-
Impression
Ms. Stephania Krishnamurthy, 79-year-old female, non-smoker resident of an assisted living, past medical history significant for paroxysmal atrial fibrillation, chronic heart failure with preserved ejection fraction, diarrhea predominant IBS, bipolar disorder
and restless leg syndrome, presented with worsening shortness of breath and decreased urinary frequency and volume despite using furosemide 20 mg twice daily.
Workup showed for A-fib with RVR, ED with serum creatinine of 2, hyperkalemia, hyperphosphatemia, lactic acidosis, increased proBNP. Patient where very dehydrated with dry mucous membranes on presentation. Admitted to ICU for management of
ED/A-fib with RVR/lactic acidosis.
Assessment
# ED
# Lactic acidosis/increased anion gap metabolic acidosis
# Chronic heart failure with preserved ejection fraction
# Paroxysmal atrial fibrillation with rapid ventricular response
# Hyperkalemia
# Hyperphosphatemia
# Hypomagnesemia
Plan
# ED
Patient has no past medical history of kidney disease
On admission, creatinine2, severe lactic acidosis of 10.8, with unclear etiology
Could be related to stress/dehydration/poor intake or starvation
Give IV fluids and monitor serum creatinine, at the same time be mindful of heart failure exacerbation
Urine culture showed no growth, blood cultures showed no growth in the last [address] abdomen pelvis showed moderate right and left small pleural effusions, mild bibasilar groundglass opacification concerning for pneumonia, third spacing with volume overload, mild diverticulosis, fat-containing abdominal hernia
Clinically improving
Slight drop in hemoglobin, repeat CBC, type and crossmatch, continue to monitor
# Lactic acidosis/increased anion gap metabolic acidosis
Patient presented with severe lactic acidosis of 10.8
Patient had rapid A-fib and dry mucous membranes on presentation
Received normal saline bolus
Single dose of vancomycin and cefepime in ER
Currently lactic acidosis normalized to 1.2
# Chronic heart failure with preserved ejection fraction
Updated echo in 2023-. Reduced ejection fraction to 40 to 45%, global hypokinesia, MR worsened
Echo March 2023
Normal left ventricular size and systolic function, left ventricular ejection fraction 55 to 60%, mild to moderate MR and TR
Patient received a single dose of 40 mg Lasix in the ER
CT abdomen/pelvis shows third spacing of fluid, clinically patient asymptomatic, appears very dry, recent ED, continue to monitor RFT's, hold on further Lasix at this time and await cardiology recommendations
# Paroxysmal atrial fibrillation with rapid ventricular response
Patient has history of paroxysmal atrial fibrillation
Presented in ER with irregular rhythm and heart rate of 160
Started on Cardizem infusion
Currently heart rate is controlled, off Cardizem, on Coreg 3.125 mg twice daily
On Eliquis 2.5 mg twice daily, can resume full dose
# Leukocytosis
Could be secondary to underlying infectious process/reactive to stress/dehydration
Received single dose of cefepime and vancomycin in ER
Blood and urine culture showed no growth in last 24 hours
Leukocyte trending down
Continue to monitor, most likely related to stress, no need of antibiotic
# Hyperkalemia
Patient received the potassium regimen in ER for a potassium of 6.5 including bicarb, insulin, and calcium gluconate
Repeat potassium levels show a potassium of 5.5
Potassium levels normalized, 4.4 today, continue to observe
# Hyperphosphatemia
Phosphorus normalized
Continue to monitor
# Hypomagnesemia
Patient had a magnesium of 1, received 4 g of magnesium as repletion
Repeat magnesium 2.1 yesterday
Get fresh mag level today
Other medical conditions
Restless leg syndrome-continue ropinirole
GERD-continue omeprazole
Anxiety-continue duloxetine as able
Chronic heart failure with preserved ejection fraction-resume diuretics as able
IBS-Diarrhea dominant-treat as needed
Anemia of chronic disease-monitor hemoglobin levels
CODE STATUS -DNR
DVT prophylaxis-Eliquis 5 mg twice daily
GI prophylaxis-Protonix 40 mg per oral twice daily
Subjective Dataa
Subjective Data
Date of Service:
Date of Service: December 20, 2024
Chief Complaint: Spool Sander Follow Up and Pulmonary Follow Up
Subjective:
Patient feels fine this morning, slept overnight well
Heart rate stabilized, off Cardizem, on Coreg
Renal function improving, serum creatinine trending down 1.4 today, 1.5 baseline 0.6-0.8
Lactic acid levels normalized, bicarb improving
Review of Systems
General: Other (Reviewed and negative)
Objective Data
Data Reviewed
Vital Signs / I&O / Oxygen:
Vital Signs
Temp Pulse Resp BP Pulse Ox
98.1 F 73 20 98/57 95
12/20/24 11:15 12/20/24 11:01 12/20/24 11:01 12/20/24 11:01 12/20/24 10:00
Intake and Output
12/19/24 12/20/24 12/21/24
06:59 06:59 06:59
Intake Total 1150 / 1360 3490.0 / 3590.0 300 / 300
Output Total 460 / 490 990 / 1020 220 / 220
Balance 690 / 870 2500.0 / 2570.0 80 / 80
SaO2 95
Nasal Cannula flow liters per 2
minute
Physical Exam
General: Comfortable and Good Appetite
HEENT: Normocephalic and Anicteric
Cardiovascular: S1-S2, Irregular Rhythm and Murmur (no murmurs)
Respiratory: Clear
GI: Soft, Non Distended, Non Tender and Normal Bowel Sounds
Neurology: Awake, Oriented and No Motor Deficits
Skin: Warm, Good Color and Other (stasis dermatitis in both legs, excoriations on Skin from scratching that is habitual)
Labs/Micro/Reports
Lab Data
12/20/24 05:39
Microbiology
12/18/24 21:29 Urine Urine Culture - Final
NO GROWTH
12/19/24 05:12 Nose MRSA Screen - Preliminary
12/18/24 20:39 Blood/Venous Blood Culture - Preliminary
No Growth in 24 hours- Final report to follow
12/18/24 20:39 Blood/Venous Blood Culture - Preliminary
No Growth in 24 hours- Final report to follow
12/18/24 19:49 Nasal Swab Influenza Types A & B ([facility]) - Final
Negative for Influenza A & B, NAAT
Negative results must be combined with clinical observations
and patient history.
Nucleic Acid Amplification test (NAAT)performed on the
[address] [employer] platform.
--- NOTE | 2024-12-20 12:57 | PTCARENOTE ---
Patient downgraded to tele.
--- NOTE | 2024-12-20 14:39 | W.PN.HOSP.TC ---
Today's Communication/Plan
-
Assessment / Plan
Assessment / Plan
Gen-AAOx3, NAD
HEENT-NC, AT, anicteric, clear oral mm
Neck-supple
CV-reg, no M, +S1/S2
Lungs-clear B/L
Abd-soft, NT, ND
Musculoskeletal-no edema, no deformity
Skin-warm and dry, chronic skin changes bilateral lower extremities
Neuro-grossly non-focal, no tremor
Psych-calm, cooperative
Ms. Cat is an 79-year-old female with a medical history of A-fib, sick sinus syndrome (Medtronic pacemaker), CHF, bipolar disorder, and anemia who presented with shortness of breath and dizziness. She was found to be in A-fib with RVR. She has
been started on diltiazem drip. She was also found to have significantly elevated lactic acid of 10 with a bicarb deficit. She was admitted to the ICU for further management on bicarb drip and titratable diltiazem drip.
A-fib with RVR:
-History of paroxysmal A-fib
-Now well-controlled on low-dose carvedilol, diltiazem drip has been discontinued
-Restarted anticoagulation with low-dose Eliquis, will monitor hemoglobin
-Had transient troponin elevation which has peaked, suspect nonischemic myocardial injury due to rapid heart rate
-Cardiology following
ED:
-Renal function improving
-IV fluids discontinued
-Monitor renal function
Lactic acidosis:
-Resolved
-Bicarb drip discontinued
Chronic HFpEF:
-Now with reduced ejection fraction
-Echocardiogram 12/19 shows reduced ejection fraction of 40 to 45% with global hypokinesis (previous LVEF was 55 to 60% in March 2023), diastolic dysfunction unable to be determined due to A-fib, mitral regurgitation appears to have worsened to
moderate to severe
-Currently holding diuretic due to renal dysfunction
-Cardiology following, restarted beta-blockade with low-dose carvedilol
Skin lesions:
-Appear chronic, likely secondary to anxiety disorder with history of picking
-Wound care following
-No evidence of acute infection
CODE STATUS: DNR/DNI
Anticipated Discharge: 24 - 48 hours
Subjective/Interval History
-
Date of Service: December 20, 2024
Ms. Cat was seen and examined at bedside this morning. She was resting comfortably and eating breakfast. No acute events overnight. Likely downgrade today.
Objective Data
-
Labs:
Laboratory Results
12/20/24 12/20/24 12/20/24
05:39 14:00 16:00
WBC 16.6 H Pending Pending
Hgb 8.3 L Pending Pending
Hct 28.7 L Pending Pending
Plt Count 295 Pending Pending
Sodium 140
Potassium 4.4
Chloride 106
Carbon Dioxide 24
BUN 58 H
Creatinine 1.4 H
Glucose 130 H
Calcium 8.3 L
Vital Signs:
Vital Signs
Temp Pulse Resp BP Pulse Ox
98.1 F 76 16 111/95 92
12/20/24 11:15 12/20/24 13:00 12/20/24 13:00 12/20/24 13:00 12/20/24 12:09
I&O
12/19/24 12/20/24 12/21/24
06:59 06:59 06:59
Intake Total 1150 / 1360 3490.0 / 3590.0 300 / 300
Output Total 460 / 490 990 / 1020 220 / 220
Balance 690 / 870 2500.0 / 2570.0 80 / 80
Review of Systems
-
History Source: Patient
All other systems: Reviewed and negative
Physical Exam
-
General: No Apparent Distress
--- NOTE | 2024-12-20 14:59 | PTCARENOTE ---
Patient oob to bedside commode and chair with PT/OT. x1 RW. Voided 75 cc/s on bsc. Call hoyos within reach.
[2024-12-20 16:48] LABS: Hemoglobin 8.7 g/dL (12.0-16.0); Mean Corp Hgb Conc. 28.1 g/dL (33.0-37.0); Mean Corpuscular Hgb 20.8 pg (27.0-31.0); Mean Platelet Volume 10.8 fL (7.4-10.4); Platelet Count 310 10^3/uL (130-400); Red Blood Cell Count 4.19 10^6/uL (4.20-5.40); Red Cell Dist. Width 16.8 % (11.5-14.5)
[2024-12-20 17:37] LABS: % Basophils 0.1 % (0-2); % Eosinophils 1.3 % (0-6); % Immature Granulocytes 0.6 % (0-0.5); % Lymphocytes 6.4 % (20.5-51.1); % Monocytes 6.2 % (1.7-9.3); % Neutrophils 85.4 % (42.2-75.2); Absolute Eosinophils 0.2 10^3/uL (0-0.7); Absolute Immature Granulocytes 0.1 10^3/uL (0-0.05); Absolute Lymphocytes 0.9 10^3/uL (1.2-3.4); Absolute Monocytes 0.9 10^3/uL (0.1-0.6); Absolute Neutrophils 11.9 10^3/uL (1.4-6.5); Nucleated Red Blood Cells % 0.7 %
[2024-12-20 17:39] LABS: Anisocytosis 2+; Hypochromasia 1+; Macrocytosis 2+; Normal RBC Morphology No; Stomatocytes 1+; Target Cells Occasional
[2024-12-20 17:40] LABS: Tear Drop Red Blood Cells 1+
[2024-12-21] VITALS (7 sets, daily range): BP systolic 106–134; BP diastolic 63–84; PULSE 89; O2SAT 98; BMI 29.2
[2024-12-21 07:17] LABS: Glucose - Point of Care 129 mg/dl (70-99)
[2024-12-21] MEDS: CYMBALTA DELAYED RELEASE 30 MG PO ×2 (09:03→20:57)
[2024-12-21] MEDS: COREG 3.125 MG PO ×2 (09:03→21:02)
[2024-12-21] MEDS: REQUIP 1 MG PO ×2 (09:03→20:57)
[2024-12-21] MEDS: ELIQUIS 2.5 MG PO ×2 (09:03→20:57)
[2024-12-21] MEDS: HYDROPHOR 1 APPLIC TOPICAL (09:04)
[2024-12-21] MEDS: PROTONIX 40 MG PO ×2 (09:05→20:57)
[2024-12-21 09:11] LABS: % Basophils 0.2 % (0-2); % Eosinophils 1.5 % (0-6); % Immature Granulocytes 0.3 % (0-0.5); % Lymphocytes 9.5 % (20.5-51.1); % Monocytes 5.4 % (1.7-9.3); % Neutrophils 83.1 % (42.2-75.2); Absolute Eosinophils 0.2 10^3/uL (0-0.7); Absolute Lymphocytes 1.2 10^3/uL (1.2-3.4); Absolute Monocytes 0.7 10^3/uL (0.1-0.6); Absolute Neutrophils 10.6 10^3/uL (1.4-6.5); Hematocrit 29.9 % (37.0-47.0); Hemoglobin 8.5 g/dL (12.0-16.0); Mean Corp Hgb Conc. 28.4 g/dL (33.0-37.0); Mean Corpuscular Hgb 21.1 pg (27.0-31.0); Mean Corpuscular Volume 74.2 fL (81.0-99.0); Mean Platelet Volume 10.7 fL (7.4-10.4); Nucleated Red Blood Cells % 0.2 %; Platelet Count 250 10^3/uL (130-400); Red Blood Cell Count 4.03 10^6/uL (4.20-5.40); Red Cell Dist. Width 16.7 % (11.5-14.5); White Blood Cell Count 12.7 10^3/uL (4.8-10.8)
[2024-12-21 09:28] LABS: Blood Urea Nitrogen 43 mg/dl (7-17); Carbon Dioxide 26 mmol/L (22-30); Chloride 105 mmol/L (98-107); Estimated Creatinine Clearance 48 ml/min; Glucose 98 mg/dl (70-99); Phosphorus 2.8 mg/dl (2.5-4.5); Potassium 3.9 mmol/L (3.5-5.1); Sodium 138 mmol/L (135-145); eGFR > 60.00
--- NOTE | 2024-12-21 09:32 | PTCARENOTE ---
Pt positive for MRSA, now on contact precautions, will transfer to another room.
[2024-12-21 09:40] LABS: Magnesium 1.9 mg/dl (1.6-2.3)
--- NOTE | 2024-12-21 10:57 | W.PN.CARDCBS ---
Today's Communication / Plan
-
Heart rate okay in A-fib
Restart Lasix which was held on admission
Start low-dose ASHIA inhibitor for mildly reduced ejection fraction
MR will need to be followed as an outpatient
Impression / Plan
-
PCP: Dr. Ramya Chaves
Card: Dr. Cruz
Impression:
Admitted with hypoglycemia, hyperkalemia, lactic acidosis and rapid Afib 12/18/24
Lactic acidosis, 10.6 on admission 12/18/24 PM
Cardiomyopathy with ejection fraction of 40-45% 12/19/2024
Moderate to severe MR
Moderate TR with PA systolic pressure 54 mmHg
Chronic HFpEF
Leukocytosis
Anemia of chronic disease
Permanent Afib
Chronic Eliquis OAC
Medtronic DC PPM
Bipolar disorder
Anxiety
B/L LE excoriations
Echocardiogram 12/19/2024: Ejection fraction 40 to 45%, global hypokinesis, moderate TR with PA systolic pressure 54 mmHg, moderate to severe MR
Echo 04/08/2023: EF 55 to 60%, mild concentric LVH, mild to moderate MR, mild TR
Plan:
Heart rate control okay on Coreg
Continue Coreg for mildly reduced ejection fraction
Restart Lasix 20 mg that was held on admit
Will add low-dose ASHIA inhibitor with reduced ejection fraction now that renal function is normal
Will need to reassess MR and follow as an outpatient
Remains anemic but stable with hemoglobin of 8.5 in 12/21
MR will need to be followed as an outpatient
PREADMIT DATA
-Patient came to [facility] last night with increased SOB and abnormal pulse ox readings at home and was admitted with multiple lab study abnormalities and cardiology is consulted for rapid Afib. Patient previously followed with a hardware sales assistant in [place] for
h/o permanent A-fib, HTN and having a Medtronic DC PPM in place. Patient was last seen in our office on 11/06/2023 and at that time appeared euvolemic and her device was checked that showed ongoing permanent A-fib. HR previously controlled with
Coreg 3.125 mg BID and digoxin 0.125 mg daily, but these are no longer on her med list. She is also chronically on Eliquis 5 mg BID. Patient says that she has been feeling chills on and off for the last 3 to 4 weeks along with increasing SOB
described as BLISS and then resting SOB in the last 1 to 2 days. She did not check her temp at home. Our office received a call on 12/15/2024 from the VN that the patient's HR was increased after working with PT. Because patient has a Medtronic PPM in
place we attempted to perform download and to walk the patient and her VN through this process, but they were unable. We then set the patient up for remote download and have been awaiting the results. In the meantime the patient's son-in-law was
at patient's independent living apartment at [facility] last night and patient complained of SOB and when they tried to check her pulse ox it was unable to read and the HR looked fast. In [facility] ER the patient was noted to be in A-fib with
RVR. She also had multiple abnormal lab studies including a lactic acid level of is initially 10.8, a potassium that was 6.5 with a CO2 level of 7 and a creatinine of 2.0. Also her total bilirubin was up to 3 with elevated LFTs and an initial
troponin of 0.051. She also had edema over her abdominal wall without any obvious LE edema, but she does have significant healing excoriations over her B/L LE which she says are from her picking. Patient was given doses of IV antibiotics in the
ER, but IVF were held due to concern for possible acute HF based on the abdominal wall edema and a proBNP of 15,200 although CXR was read as no acute disease. Patient reports she has been compliant with her usual dose of Lasix 20 mg daily at home,
but interestingly as of 11/06/2023 we thought that she was on Lasix 60 mg daily plus a as needed dose of metolazone.
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
Subjective
Date of Service: December 21, 2024
No complaints.
Objective
Labs:
12/21/24 08:45
12/21/24 08:45
Labs
Hgb 8.5 g/dL (12.0-16.0) L 12/21/24 08:45
Hct 29.9 % (37.0-47.0) L 12/21/24 08:45
Plt Count 250 10^3/uL (130-400) 12/21/24 08:45
PT 29.3 Sec (11.4-14.6) H 12/18/24 19:49
INR 2.78 12/18/24 19:49
APTT > 200.0 Sec (23.4-35.0) H* 12/19/24 06:38
Sodium 138 mmol/L (135-145) 12/21/24 08:45
Potassium 3.9 mmol/L (3.5-5.1) 12/21/24 08:45
BUN 43 mg/dl (7-17) H 12/21/24 08:45
Creatinine 0.9 mg/dL (0.6-1.0) 12/21/24 08:45
Glucose 98 mg/dl (70-99) 12/21/24 08:45
Troponins
12/18/24 12/19/24 12/19/24
19:49 00:21 05:12
Troponin I 0.051 H* 0.078 H* D 0.124 H* D
12/19/24
13:59
Troponin I 0.105 H*
Vital Signs and I&O:
Vital Signs
Temp Pulse Resp BP Pulse Ox
97.3 F 80 24 134/84 97
12/21/24 07:05 12/21/24 09:03 12/21/24 07:05 12/21/24 09:03 12/21/24 09:33
Vital Signs
Temp Pulse Resp BP Pulse Ox
97.3 F 80 24 134/84 97
12/21/24 07:05 12/21/24 09:03 12/21/24 07:05 12/21/24 09:03 12/21/24 09:33
Intake & Output
12/19/24 12/20/24 12/21/24 12/22/24
06:59 06:59 06:59 06:59
Intake Total 1150 / 1360 3490.0 / 3590.0 1740 / 1740 240 / 240
Output Total 460 / 490 990 / 1020 445 / 445
Balance 690 / 870 2500.0 / 2570.0 1295 / 1295 240 / 240
Physical Exam
Physical Exam
General: Well developed, well nourished in NAD.
Neck: Supple, no JVD, HJR, carotids +2 B/L, no bruits bilaterally.
Heart: Non displaced PMI, irregular, no murmurs, No S3, S4, no rubs.
Lungs: Scattered rhonchi
Abdomen: Normal bowel sounds, soft, non-tender, non-distended.
Extremities: No clubbing, cyanosis or edema bilaterally.
Neuro: Grossly nonfocal, awake, alert and oriented x3.
[2024-12-21 13:14] LABS: Glucose - Point of Care 227 mg/dl (70-99)
--- NOTE | 2024-12-21 14:13 | W.PN.HOSP.TC ---
Addendum entered and electronically signed by Good Grant DO 12/21/24 16:48:
Spoke with patient's daughter Samantha to discuss updates about her mother's clinical progress. We discussed that her mother would need placement for acute rehab following this hospitalization. Samantha informed me that her mother had been living in an
independent living facility prior to this admission but her ability to care for self has significantly declined recently and she will no longer be able to live in an independent living facility. The patient's family will need some guidance from
case management regarding how to proceed with finding a rehab facility in the short-term and a long-term care facility after that. Samantha did inform me that they found a place nearby that had a bed available for her and would discuss this further
with case management.
Original Note:
Today's Communication/Plan
-
Assessment / Plan
Assessment / Plan
Gen-AAOx3, NAD
HEENT-NC, AT, anicteric, clear oral mm
Neck-supple
CV-reg, no M, +S1/S2
Lungs-clear B/L
Abd-soft, NT, ND
Musculoskeletal-no edema, no deformity
Skin-warm and dry, chronic skin changes bilateral lower extremities
Neuro-grossly non-focal, no tremor
Psych-calm, cooperative
Ms. Cat is an 79-year-old female with a medical history of A-fib, sick sinus syndrome (Medtronic pacemaker), CHF, bipolar disorder, and anemia who presented with shortness of breath and dizziness. She was found to be in A-fib with RVR. She has
been started on diltiazem drip. She was also found to have significantly elevated lactic acid of 10 with a bicarb deficit. She was admitted to the ICU for further management on bicarb drip and titratable diltiazem drip.
A-fib with RVR:
-History of paroxysmal A-fib
-Now well-controlled on low-dose carvedilol, diltiazem drip has been discontinued
-Restarted anticoagulation with low-dose Eliquis, hemoglobin stable
-Had transient troponin elevation which has peaked, suspect nonischemic myocardial injury due to rapid heart rate
-Cardiology following
ED:
-Resolved, renal function now within normal limits
-IV fluids discontinued
Lactic acidosis:
-Resolved
-Bicarb drip discontinued
Chronic HFpEF:
-Now with reduced ejection fraction
-Echocardiogram 12/19 shows reduced ejection fraction of 40 to 45% with global hypokinesis (previous LVEF was 55 to 60% in March 2023), diastolic dysfunction unable to be determined due to A-fib, mitral regurgitation appears to have worsened to
moderate to severe
-Will restart diuretic with home dose of Lasix 20 mg p.o. daily now that renal function has returned to normal
-Cardiology following, restarted beta-blockade with low-dose carvedilol, will monitor worsening mitral regurgitation in outpatient setting
Skin lesions:
-Appear chronic, likely secondary to anxiety disorder with history of picking
-Wound care following
-No evidence of acute infection
CODE STATUS: DNR/DNI
Anticipated Discharge: 24 - 48 hours
Subjective/Interval History
-
Date of Service: December 21, 2024
Patient was seen and examined at bedside this morning. No complaints. Her hemoglobin remained stable and her renal function returned to normal. She did incidentally test positive for MRSA by nasal swab.
Objective Data
-
Labs:
Laboratory Results
12/21/24
08:45
WBC 12.7 H
Hgb 8.5 L
Hct 29.9 L
Plt Count 250
Sodium 138
Potassium 3.9
Chloride 105
Carbon Dioxide 26
BUN 43 H
Creatinine 0.9
Glucose 98
Calcium 9.0
Vital Signs:
Vital Signs
Temp Pulse Resp BP Pulse Ox
97.4 F 79 22 121/65 95
01/29/25 11:53 12/21/24 11:53 12/21/24 11:53 12/21/24 11:53 12/21/24 11:53
I&O
12/20/24 12/21/24 12/22/24
06:59 06:59 06:59
Intake Total 3490.0 / 3590.0 1740 / 1740 240 / 240
Output Total 990 / 1020 445 / 445
Balance 2500.0 / 2570.0 1295 / 1295 240 / 240
Review of Systems
-
History Source: Patient
All other systems: Reviewed and negative
Constitutional: Reports Fatigue
Physical Exam
-
General: No Apparent Distress
--- NOTE | 2024-12-21 17:35 | PTCARENOTE ---
Pt transferred to [facility] on modified contact precautions for positive MRSA swab.
[2024-12-21 21:52] LABS: Glucose - Point of Care 147 mg/dl (70-99)
--- NOTE | 2024-12-21 23:34 | PTCARENOTE ---
Pt assessed as per flow sheet. Pt denies pain. Pt sounds 'tight' with wheezes. Discussed with [employer] food and beverage operations manager who ordered neb tx. BLISS noted with stand and pivot to BSC. No s/s of distress assessed. Will continue to monitor.
[2024-12-22 03:20] VITALS: BP 114/75
--- NOTE | 2024-12-22 05:15 | PTCARENOTE ---
New dsg applied to RLE as ordered by wound RN. Pt states she is never itchy she just has a compulsion to pick at her skin. No s/s of distress assessed. Will continue to monitor.
[2024-12-22 05:18] VITALS: BMI 31.9
[2024-12-22 08:00] VITALS: BP 142/84
[2024-12-22 08:18] LABS: Blood Urea Nitrogen 31 mg/dl (7-17); Calcium 9.2 mg/dl (8.4-10.2); Carbon Dioxide 22 mmol/L (22-30); Chloride 109 mmol/L (98-107); Estimated Creatinine Clearance 74 ml/min; Glucose 95 mg/dl (70-99); Phosphorus 2.4 mg/dl (2.5-4.5); Potassium 4.7 mmol/L (3.5-5.1); Sodium 142 mmol/L (135-145); eGFR > 60.00
[2024-12-22 08:35] LABS: Glucose - Point of Care 113 mg/dl (70-99)
[2024-12-22] MEDS: COREG 3.125 MG PO (08:39)
[2024-12-22] MEDS: CYMBALTA DELAYED RELEASE 30 MG PO ×2 (08:39→21:48)
[2024-12-22] MEDS: PROTONIX 40 MG PO ×2 (08:39→21:48)
[2024-12-22] MEDS: ELIQUIS 2.5 MG PO (08:40)
[2024-12-22] MEDS: HYDROPHOR 1 APPLIC TOPICAL (08:40)
[2024-12-22 08:41] LABS: % Basophils 0.2 % (0-2); % Eosinophils 1.7 % (0-6); % Immature Granulocytes 0.3 % (0-0.5); % Lymphocytes 13.8 % (20.5-51.1); Absolute Eosinophils 0.2 10^3/uL (0-0.7); Absolute Lymphocytes 1.3 10^3/uL (1.2-3.4); Absolute Monocytes 0.8 10^3/uL (0.1-0.6); Hemoglobin 9.2 g/dL (12.0-16.0); Mean Corp Hgb Conc. 27.9 g/dL (33.0-37.0); Mean Corpuscular Hgb 20.6 pg (27.0-31.0); Mean Corpuscular Volume 73.8 fL (81.0-99.0); Mean Platelet Volume 10.8 fL (7.4-10.4); Nucleated Red Blood Cells % 0.8 %; Platelet Count 231 10^3/uL (130-400); Red Blood Cell Count 4.47 10^6/uL (4.20-5.40); Red Cell Dist. Width 16.8 % (11.5-14.5); White Blood Cell Count 9.3 10^3/uL (4.8-10.8)
[2024-12-22] MEDS: REQUIP 1 MG PO ×2 (08:41→22:11)
[2024-12-22 11:41] VITALS: BP 137/74
--- NOTE | 2024-12-22 12:28 | CM ---
Addendum entered by Amanda Dougherty 12/22/24 14:56:
Per Rosa, bed available at [facility] for tomorrow 12/23/24
Plan: SNF with probable transition to LTC- daughter will discuss with patient.
Spoke with patient, she is in agreement.
Spoke with daughter Samantha, she is in agreement.
IMM reviewed with daughter Samantha via phone.
Daughter will pay for a WC van.
Plan: [facility] via [employer] van tomorrow.
[facility]
Report#[phone]

Addendum entered by Amanda Dougherty 12/22/24 13:00:
Spoke with Daughter Samantha. Per Samantha, patient is from [facility] but has been failing. patient is not keeping the place clean and daughter has been coming to clean every few weeks.
[place] has recommended PC but unable to afford.
Daughter would like skilled with potential for LTC, discussed facilities and referrals sent via careport.
Daughter will discuss with her mother.
Original Note:
Patient seen bedside.
Discussed PT/OT recommendations with patient and she is agreeable to referrals for skilled rehab being sent out.
Referrals sent via [facility].
Plan: Skilled rehab once medically stable and bed available.
[2024-12-22 12:53] LABS: Glucose - Point of Care 114 mg/dl (70-99)
--- NOTE | 2024-12-22 13:58 | W.PN.HOSP.TC ---
Today's Communication/Plan
-
Assessment / Plan
Assessment / Plan
Gen-AAOx3, NAD
HEENT-NC, AT, anicteric, clear oral mm
Neck-supple
CV-reg, no M, +S1/S2
Lungs-clear B/L
Abd-soft, NT, ND
Musculoskeletal-no edema, no deformity
Skin-warm and dry, chronic skin changes bilateral lower extremities
Neuro-grossly non-focal, no tremor
Psych-calm, cooperative
Ms. Cat is an 79-year-old female with a medical history of A-fib, sick sinus syndrome (Medtronic pacemaker), CHF, bipolar disorder, and anemia who presented with shortness of breath and dizziness. She was found to be in A-fib with RVR. She has
been started on diltiazem drip. She was also found to have significantly elevated lactic acid of 10 with a bicarb deficit. She was admitted to the ICU for further management on bicarb drip and titratable diltiazem drip.
A-fib with RVR:
-History of paroxysmal A-fib
-Now well-controlled on low-dose carvedilol, diltiazem drip has been discontinued
-Restarted anticoagulation with low-dose Eliquis, hemoglobin stable
-Had transient troponin elevation which has peaked, suspect nonischemic myocardial injury due to rapid heart rate
-Cardiology following
ED:
-Resolved, renal function now within normal limits
-IV fluids discontinued
Lactic acidosis:
-Resolved
-Bicarb drip discontinued
Chronic HFpEF:
-Now with reduced ejection fraction
-Echocardiogram 12/19 shows reduced ejection fraction of 40 to 45% with global hypokinesis (previous LVEF was 55 to 60% in March 2023), diastolic dysfunction unable to be determined due to A-fib, mitral regurgitation appears to have worsened to
moderate to severe
-Restarting home dose of Lasix 20 mg p.o. daily now that renal function has returned to normal
-Cardiology following, restarted beta-blockade with low-dose carvedilol, recommend starting low-dose lisinopril, will monitor worsening mitral regurgitation in outpatient setting
Skin lesions:
-Appear chronic, likely secondary to anxiety disorder with history of picking
-Wound care following
-No evidence of acute infection
CODE STATUS: DNR/DNI
Anticipated Discharge: 24 - 48 hours
Subjective/Interval History
-
Date of Service: December 22, 2024
Patient was seen and examined at bedside this morning. No complaints. She is awaiting SNF placement.
Objective Data
-
Labs:
Laboratory Results
12/22/24
07:12
WBC 9.3
Hgb 9.2 L
Hct 33.0 L
Plt Count 231
Sodium 142
Potassium 4.7
Chloride 109 H
Carbon Dioxide 22
BUN 31 H
Creatinine 0.6
Glucose 95
Calcium 9.2
Vital Signs:
Vital Signs
Temp Pulse Resp BP Pulse Ox
97.6 F 77 22 137/74 98
12/22/24 11:41 12/22/24 11:41 12/22/24 11:41 12/22/24 11:41 12/22/24 11:41
I&O
12/21/24 12/22/24 12/23/24
06:59 06:59 06:59
Intake Total 1740 / 1740 240 / 240
Output Total 445 / 445
Balance 1295 / 1295 240 / 240
Review of Systems
-
History Source: Patient
All other systems: Reviewed and negative
Physical Exam
-
General: No Apparent Distress
[2024-12-22] MEDS: NEUTRA-PHOS POWDER PACKET 250 MG PO (15:04)
[2024-12-22] MEDS: ZESTRIL 2.5 MG PO (15:04)
[2024-12-22] MEDS: LASIX 20 MG IV (15:07)
[2024-12-22 15:14] VITALS: BP 117/80
[2024-12-22] MEDS: DUONEB 3 ML INH ×2 (15:15→20:24)
--- NOTE | 2024-12-22 15:58 | W.PN.CARDCBS ---
Today's Communication / Plan
-
RECOMMENDATION:
-Increased Coreg from 3.125 to 6.25mg bid
-Increased Eliquis / apixaban back to 5mg from her 2.5 mg bid dose. I think it had been reduced in the setting of ED
-Will need to follow H/H closely
Impression / Plan
-
PCP: Dr. Ramya Chaves
Card: Dr. Cruz
Impression:
Admitted with hypoglycemia, hyperkalemia, lactic acidosis and rapid Afib 12/18/24
Lactic acidosis, 10.6 on admission 12/18/24 PM
Cardiomyopathy with ejection fraction of 40-45% 12/19/2024
Moderate to severe MR
Moderate TR with PA systolic pressure 54 mmHg
Chronic HFpEF
Leukocytosis
Anemia of chronic disease
Permanent Afib
Chronic Eliquis OAC
Medtronic DC PPM
Bipolar disorder
Anxiety
B/L LE excoriations
Echocardiogram 12/19/2024: Ejection fraction 40 to 45%, global hypokinesis, moderate TR with PA systolic pressure 54 mmHg, moderate to severe MR
Echo 04/08/2023: EF 55 to 60%, mild concentric LVH, mild to moderate MR, mild TR
Plan:
-Heart rate remains a little high on 3.125 mg bid and goes to 120's with minimal exertion: Will increase Coreg to 6.25mg bid and follow
-Continue Coreg for mildly reduced ejection fraction
-Continue furosemide 20 mg that was held on admit
-She is currently on Eliquis 2.5 mg bid: Her renal function had been high but is now much improved. I think we should increase back to her outpatient dose of 5mg bid
-Tolerating ASHIA
-May eventually need LUIZA to assess MV
-Spent 51 minutes reviewing records. Adjusting doses of medications, discussing with nursing etc.
PREADMIT DATA
-Patient came to [facility] last night with increased SOB and abnormal pulse ox readings at home and was admitted with multiple lab study abnormalities and cardiology is consulted for rapid Afib. Patient previously followed with a bookseamer blindstitch in [place] for
h/o permanent A-fib, HTN and having a Medtronic DC PPM in place. Patient was last seen in our office on 11/06/2023 and at that time appeared euvolemic and her device was checked that showed ongoing permanent A-fib. HR previously controlled with
Coreg 3.125 mg BID and digoxin 0.125 mg daily, but these are no longer on her med list. She is also chronically on Eliquis 5 mg BID. Patient says that she has been feeling chills on and off for the last 3 to 4 weeks along with increasing SOB
described as BLISS and then resting SOB in the last 1 to 2 days. She did not check her temp at home. Our office received a call on 12/15/2024 from the VN that the patient's HR was increased after working with PT. Because patient has a Medtronic PPM in
place we attempted to perform download and to walk the patient and her VN through this process, but they were unable. We then set the patient up for remote download and have been awaiting the results. In the meantime the patient's son-in-law was
at patient's independent living apartment at [facility] last night and patient complained of SOB and when they tried to check her pulse ox it was unable to read and the HR looked fast. In [facility] ER the patient was noted to be in A-fib with
RVR. She also had multiple abnormal lab studies including a lactic acid level of is initially 10.8, a potassium that was 6.5 with a CO2 level of 7 and a creatinine of 2.0. Also her total bilirubin was up to 3 with elevated LFTs and an initial
troponin of 0.051. She also had edema over her abdominal wall without any obvious LE edema, but she does have significant healing excoriations over her B/L LE which she says are from her picking. Patient was given doses of IV antibiotics in the
ER, but IVF were held due to concern for possible acute HF based on the abdominal wall edema and a proBNP of 15,200 although CXR was read as no acute disease. Patient reports she has been compliant with her usual dose of Lasix 20 mg daily at home,
but interestingly as of 11/06/2023 we thought that she was on Lasix 60 mg daily plus a as needed dose of metolazone.
Progress Note - Pearl Fisherman
Subjective
Date of Service: December 22, 2024
Still quite short of breath with minimal activity.
Objective
Labs:
12/22/24 07:12
12/22/24 07:12
Labs
Hgb 9.2 g/dL (12.0-16.0) L 12/22/24 07:12
Hct 33.0 % (37.0-47.0) L 12/22/24 07:12
Plt Count 231 10^3/uL (130-400) 12/22/24 07:12
PT 29.3 Sec (11.4-14.6) H 12/18/24 19:49
INR 2.78 12/18/24 19:49
APTT > 200.0 Sec (23.4-35.0) H* 12/19/24 06:38
Sodium 142 mmol/L (135-145) 12/22/24 07:12
Potassium 4.7 mmol/L (3.5-5.1) 12/22/24 07:12
BUN 31 mg/dl (7-17) H 12/22/24 07:12
Creatinine 0.6 mg/dL (0.6-1.0) 12/22/24 07:12
Glucose 95 mg/dl (70-99) 12/22/24 07:12
Vital Signs and I&O:
Vital Signs
Temp Pulse Resp BP Pulse Ox
97.3 F 74 24 117/80 100
12/22/24 15:14 12/22/24 15:16 12/22/24 15:16 12/22/24 15:14 12/22/24 15:16
Vital Signs
Temp Pulse Resp BP Pulse Ox
97.3 F 74 24 117/80 100
12/22/24 15:14 12/22/24 15:16 12/22/24 15:16 12/22/24 15:14 12/22/24 15:16
Intake & Output
12/19/24 12/20/24 12/21/24 12/22/24
23:59 23:59 23:59 23:59
Intake Total 3940.0 / 4040.0 1720 / 1720 960 / 960
Output Total 1110 / 1160 785 / 785 150 / 150
Balance 2830.0 / 2880.0 935 / 935 960 / 960 -150 / -150
Physical Exam
Physical Exam
Gen: Lying in bed stating she was quite short of breath for some time but worse now since before hospitalized
HEENT: NC/AT, sclera anicteric
Lungs: Clear anteriorly
CV: Irreg irreg
Ext: venous insufficiency with 2+ edema
[2024-12-22 17:32] LABS: Glucose - Point of Care 169 mg/dl (70-99)
[2024-12-22 20:27] VITALS: BP 124/87
[2024-12-22] MEDS: COREG 6.25 MG PO (21:47)
[2024-12-22] MEDS: ELIQUIS 5 MG PO (21:48)
[2024-12-22 23:15] VITALS: BP 128/74
[2024-12-23 03:26] VITALS: BP 134/68
[2024-12-23 05:47] VITALS: BMI 28.5
[2024-12-23 07:00] VITALS: BP 130/72
[2024-12-23] MEDS: REQUIP 1 MG PO ×2 (08:13→19:22)
[2024-12-23] MEDS: PROTONIX 40 MG PO ×2 (08:14→19:22)
[2024-12-23] MEDS: ELIQUIS 5 MG PO ×2 (08:14→19:22)
[2024-12-23] MEDS: HYDROPHOR 1 APPLIC TOPICAL (08:14)
[2024-12-23] MEDS: LASIX 20 MG PO (08:14)
[2024-12-23] MEDS: CYMBALTA DELAYED RELEASE 30 MG PO ×2 (08:15→19:22)
[2024-12-23] MEDS: ZESTRIL 2.5 MG PO (08:15)
[2024-12-23] MEDS: COREG 6.25 MG PO (08:16)
--- NOTE | 2024-12-23 08:17 | W.DCSUMMARY ---
Discharge Summary
Discharge Data
Date of Admission: 12/18/24
Date of Discharge: 12/24/24
-
Pending Results: No
Hospital Course
Ms. Cat is an 79-year-old female with a medical history of A-fib, sick sinus syndrome (Medtronic pacemaker), CHF, bipolar disorder, and anemia who presented with shortness of breath and dizziness. She was found to be in A-fib with RVR. She has
been started on diltiazem drip. She was also found to have significantly elevated lactic acid of 10 with a bicarb deficit. She was admitted to the ICU for further management on bicarb drip and titratable diltiazem drip.
Her lactic acid level rapidly recovered to within normal limits. Her heart rate was able to be controlled with oral medications and her diltiazem drip was discontinued. She had transient troponin elevation which peaked, suspect nonischemic injury
due to rapid heart rate, do not suspect ACS. Echocardiogram was obtained on 12/19/2024 which showed reduced ejection fraction of 40 to 45% with global hypokinesis, previously her LVEF was 55 to 60% in March 2023. Echocardiogram also showed mitral
regurgitation that appeared to have worsened to moderate to severe. Per family there is suspicion that she had not been taking her home medications for quite some time which likely led to this hospitalization. She was followed by cardiology during
this hospitalization who would like her to follow-up in the outpatient setting for ongoing monitoring of her LVEF and mitral regurgitation. Her ED resolved with IV fluids and improvement in her heart rate. Her renal function returned within
normal limits. She was continued on carvedilol and started on low-dose lisinopril. She was continued on Eliquis for anticoagulation in the setting of A-fib. Her hemoglobin remained stable. She has a cough that she reports is chronic. She also
had some intermittent wheezing that was relieved with nebulizer treatments. Her MRSA screen was positive and she has had prior skin infections with MRSA. She has been empirically started on a 5-day course of antibiotics for pneumonia that will
cover for MRSA (doxycycline and cefuroxime). Should continue these antibiotics after discharge. She was mildly bronchospastic and so was started on steroids and will be discharged on a short steroid taper. She appeared mildly fluid overloaded
after receiving IV fluids and holding Lasix but recovered appropriately after restarting her home dose of oral Lasix. She will be continued on her same Lasix dose of 20 mg daily that she had been taking prior to admission. Her carvedilol has been
increased to 12.5 mg twice daily. She will need to follow-up in the outpatient cardiology office for ongoing management and medication adjustment as needed.
She was evaluated by PT/OT who recommended SNF for ongoing rehab after hospital discharge. Patient's family indicated need for long-term care, as she had been living independently prior to this admission. Arrangements have been made for discharge
to [facility]. At time of hospital discharge she was hemodynamically stable. She will need to follow-up closely with her primary care physician and with cardiology in the outpatient setting.
Gen-AAOx3, NAD
HEENT-NC, AT, anicteric, clear oral mm
Neck-supple
CV-reg, no M, +S1/S2
Lungs-clear B/L
Abd-soft, NT, ND
Musculoskeletal-mild bilateral lower extremity edema, no deformity
Skin-warm and dry, chronic skin changes bilateral lower extremities
Neuro-grossly non-focal, no tremor
Psych-calm, cooperative
Discharge Plan
-
Patient Disposition: Penitentiary/SNF
Discharge Diagnosis/Procedures: A-fib with RVR, ED, lactic acidosis
Diet: 2 Gram Sodium
Activity: With assistance and As tolerated
Other Services: PT and OT
Activity Restrictions/Additional Instructions:
Wound Care Instructions
R leg: clean with soap and water, Xeroform and silicone foam, change q 2-3 days and prn drainage.
mineral oil to legs daily
continue fungal powder in skin folds and L Axilla bid
Ms. Cat is an 79-year-old female with a medical history of A-fib, sick sinus syndrome (Medtronic pacemaker), CHF, bipolar disorder, and anemia who presented with shortness of breath and dizziness. She was found to be in A-fib with RVR. She has
been started on diltiazem drip. She was also found to have significantly elevated lactic acid of 10 with a bicarb deficit. She was admitted to the ICU for further management on bicarb drip and titratable diltiazem drip.
Her lactic acid level rapidly recovered to within normal limits. Her heart rate was able to be controlled with oral medications and her diltiazem drip was discontinued. She had transient troponin elevation which peaked, suspect nonischemic injury
due to rapid heart rate, do not suspect ACS. Echocardiogram was obtained on 12/19/2024 which showed reduced ejection fraction of 40 to 45% with global hypokinesis, previously her LVEF was 55 to 60% in March 2023. Echocardiogram also showed mitral
regurgitation that appeared to have worsened to moderate to severe. Per family there is suspicion that she had not been taking her home medications for quite some time which likely led to this hospitalization. She was followed by cardiology during
this hospitalization who would like her to follow-up in the outpatient setting for ongoing monitoring of her LVEF and mitral regurgitation. Her ED resolved with IV fluids and improvement in her heart rate. Her renal function returned within
normal limits. She was continued on carvedilol and started on low-dose lisinopril. She was continued on Eliquis for anticoagulation in the setting of A-fib. Her hemoglobin remained stable. She has a cough that she reports is chronic. She also
had some intermittent wheezing that was relieved with nebulizer treatments. Her MRSA screen was positive and she has had prior skin infections with MRSA. She has been empirically started on a 5-day course of antibiotics for pneumonia that will
cover for MRSA (doxycycline and cefuroxime). Should continue these antibiotics after discharge. She was mildly bronchospastic and so was started on steroids and will be discharged on a short steroid taper. She appeared mildly fluid overloaded
after receiving IV fluids and holding Lasix but recovered appropriately after restarting her home dose of oral Lasix. She will be continued on her same Lasix dose of 20 mg daily that she had been taking prior to admission. Her carvedilol has been
increased to 12.5 mg twice daily. She will need to follow-up in the outpatient cardiology office for ongoing management and medication adjustment as needed.
She was evaluated by PT/OT who recommended SNF for ongoing rehab after hospital discharge. Patient's family indicated need for long-term care, as she had been living independently prior to this admission. Arrangements have been made for discharge
to [facility]. At time of hospital discharge she was hemodynamically stable. She will need to follow-up closely with her primary care physician and with cardiology in the outpatient setting.
Referrals:
UNKNOWN - PT NOT,INTERVIEWE [Family Provider] -
Prescriptions:
New
lisinopril 2.5 mg Tablet
2.5 mg PO DAILY 30 Days Qty: 30 0RF
pantoprazole 40 mg tablet,delayed release (DR/EC)
40 mg PO DAILY 30 Days Qty: 30 0RF
doxycycline hyclate 100 mg Capsule
100 mg PO Q12 5 Days Qty: 10 0RF
cefuroxime axetil 250 mg Tablet
250 mg PO BID 5 Days Qty: 10 0RF
carvedilol 6.25 mg Tablet
12.5 mg PO BID 30 Days Qty: 120 0RF
methylprednisolone [Medrol (Raffaele)] 4 mg tablets,dose pack
See Rx Instructions .ROUTE .COMPLEX Qty: 21 0RF
Rx Instructions:
for 6 days
Continued
ropinirole 1 mg tablet
1 mg PO BID
omeprazole 40 mg capsule,delayed release(DR/EC)
40 mg PO BID
Eliquis 5 mg tablet
5 mg PO BID
duloxetine 30 mg capsule,delayed release(DR/EC)
30 mg PO BID
folic acid 1 mg Tablet
1 mg PO DAILY
furosemide [Lasix] 20 mg Tablet
20 mg PO DAILY
cholecalciferol (vitamin D3) [Vitamin D3] 50 mcg (2,000 unit) Tablet
50 mcg PO DAILY
magnesium oxide 400 mg magnesium Tablet
400 mg PO DAILY
loperamide 2 mg Tablet
2 mg PO Q6H PRN (Reason: diarrhea)
acetaminophen 650 mg Tablet Extended Release
1,300 mg PO DAILYPRN PRN (Reason: mild pain)
hydroxyzine pamoate 25 mg Capsule
25 mg PO BIDPRN PRN (Reason: ANXIETY)
Discontinued
potassium chloride 10 mEq capsule, extended release
20 meq PO DAILY
aspirin 81 mg Tablet,Delayed Release (Dr/Ec)
81 mg PO DAILY
Discharge Orders:
Discharge Patient (As Directed); Ordered 12/24/24
Ordered By: Good Grant
Discharge Date and Time
Print Language: ROMANIAN
[2024-12-23 08:44] LABS: % Basophils 0.2 % (0-2); % Eosinophils 2.6 % (0-6); % Immature Granulocytes 0.4 % (0-0.5); % Lymphocytes 14.5 % (20.5-51.1); % Monocytes 8.7 % (1.7-9.3); % Neutrophils 73.6 % (42.2-75.2); Absolute Eosinophils 0.2 10^3/uL (0-0.7); Absolute Lymphocytes 1.2 10^3/uL (1.2-3.4); Absolute Monocytes 0.7 10^3/uL (0.1-0.6); Hematocrit 32.2 % (37.0-47.0); Mean Corpuscular Hgb 21.2 pg (27.0-31.0); Mean Corpuscular Volume 75.9 fL (81.0-99.0); Mean Platelet Volume 10.8 fL (7.4-10.4); Nucleated Red Blood Cells % 0.5 %; Platelet Count 206 10^3/uL (130-400); Red Blood Cell Count 4.24 10^6/uL (4.20-5.40); Red Cell Dist. Width 16.6 % (11.5-14.5); White Blood Cell Count 8.1 10^3/uL (4.8-10.8)
[2024-12-23 09:04] LABS: Blood Urea Nitrogen 22 mg/dl (7-17); Calcium 8.9 mg/dl (8.4-10.2); Carbon Dioxide 30 mmol/L (22-30); Chloride 105 mmol/L (98-107); Estimated Creatinine Clearance 70 ml/min; Glucose 101 mg/dl (70-99); Magnesium 1.7 mg/dl (1.6-2.3); Phosphorus 2.8 mg/dl (2.5-4.5); Potassium 4.3 mmol/L (3.5-5.1); Sodium 143 mmol/L (135-145); eGFR > 60.00
[2024-12-23] MEDS: DUONEB 3 ML INH ×2 (09:28→22:08)
--- NOTE | 2024-12-23 09:30 | PTCARENOTE ---
Received pt SOB, 100% on RR 24, audible wheezing, dyspneic at rest. RT called for Janeb. Dr. Grant notified.
--- NOTE | 2024-12-23 10:10 | W.PN.CARDCBS ---
Today's Communication / Plan
-
RECOMMENDATIONS:
-Increase coreg to 12.5mg bid
Impression / Plan
-
PCP: Dr. Ramya Chaves
Card: Dr. Cruz
Impression:
Admitted with hypoglycemia, hyperkalemia, lactic acidosis and rapid Afib 12/18/24
Lactic acidosis, 10.6 on admission 12/18/24 PM
Cardiomyopathy with ejection fraction of 40-45% 12/19/2024
Moderate to severe MR
Moderate TR with PA systolic pressure 54 mmHg
Chronic HFpEF
Leukocytosis
Anemia of chronic disease
Permanent Afib
Chronic Eliquis OAC
Medtronic DC PPM
Bipolar disorder
Anxiety
B/L LE excoriations
Echocardiogram 12/19/2024: Ejection fraction 40 to 45%, global hypokinesis, moderate TR with PA systolic pressure 54 mmHg, moderate to severe MR
Echo 04/08/2023: EF 55 to 60%, mild concentric LVH, mild to moderate MR, mild TR
Plan:
-Heart rate remains high on 3.125 mg bid. Just increased Coreg to 6.25mg bid and follow: She has only received 2 doses so far. It looks as if her BP may even tolerate a little more so may increase to 12.5 mg po bid
-Continue Coreg for mildly reduced ejection fraction
-Continue furosemide 20 mg that was held on admit
-Eliquis dose increased to 5 mg bid.
-Tolerating ASHIA
-May eventually need LUIZA to assess MV
Clinical summary: 79-year-old woman with history of permanent atrial fibrillation, Medtronic pacemaker, reference to HFpEF in the past with history of bipolar disorder, admitted with lactic acidosis and hyperkalemia in the setting of ED, troponin
of 0.051 and bilirubin of 3 with elevated transaminases, culture negative, proBNP was 15,200. Currently lives independently at [facility]
Progress Note - Parachute Supervisor
Subjective
Date of Service: December 23, 2024
She states she is breathing better. She was resting but opened eyes and answered questions
Objective
Labs:
12/23/24 08:20
12/23/24 08:20
Labs
Hgb 9.0 g/dL (12.0-16.0) L 12/23/24 08:20
Hct 32.2 % (37.0-47.0) L 12/23/24 08:20
Plt Count 206 10^3/uL (130-400) 12/23/24 08:20
PT 29.3 Sec (11.4-14.6) H 12/18/24 19:49
INR 2.78 12/18/24 19:49
APTT > 200.0 Sec (23.4-35.0) H* 12/19/24 06:38
Sodium 143 mmol/L (135-145) 12/23/24 08:20
Potassium 4.3 mmol/L (3.5-5.1) 12/23/24 08:20
BUN 22 mg/dl (7-17) H 12/23/24 08:20
Creatinine 0.6 mg/dL (0.6-1.0) 12/23/24 08:20
Glucose 101 mg/dl (70-99) H 12/23/24 08:20
Vital Signs and I&O:
Vital Signs
Temp Pulse Resp BP Pulse Ox
97.3 F 71 16 130/72 94
12/23/24 07:00 12/23/24 09:31 12/23/24 09:31 12/23/24 08:15 12/23/24 10:03
Vital Signs
Temp Pulse Resp BP Pulse Ox
97.3 F 71 16 130/72 94
12/23/24 07:00 12/23/24 09:31 12/23/24 09:31 12/23/24 08:15 12/23/24 10:03
Intake & Output
12/20/24 12/21/24 12/22/24 12/23/24
23:59 23:59 23:59 23:59
Intake Total 1720 / 1720 960 / 960 120 / 120
Output Total 785 / 785 1900 / 1900 250 / 250
Balance 935 / 935 960 / 960 -1780 / -1780 -250 / -250
Physical Exam
Physical Exam
PE:
Gen: Audible wheezing vs upper stridor audible when I walked in room
Lungs: expiratory wheezing but sounds as if maybe some component of upper respiratory tract as well
CV: Irreg tachy
Ext: Venous stasis changes and 2+ edema
--- NOTE | 2024-12-23 10:28 | CM ---
Addendum entered by Amanda Dougherty 12/23/24 11:45:
d/c on hold, Rosa/MILLIE liaison updated.
Original Note:
Plan: [facility] via [facility] 12:30
[facility]
Report#[phone]
[2024-12-23 11:09] VITALS: BP 118/58
[2024-12-23] MEDS: SOLU-MEDROL PF 60 MG IV (11:54)
[2024-12-23] MEDS: CEFTIN 250 MG PO ×2 (11:55→19:22)
[2024-12-23] MEDS: VIBRAMYCIN 100 MG PO ×2 (11:55→19:22)
--- NOTE | 2024-12-23 14:40 | W.PN.HOSP.TC ---
Today's Communication/Plan
-
Assessment / Plan
Assessment / Plan
Gen-AAOx3, NAD
HEENT-NC, AT, anicteric, clear oral mm
Neck-supple
CV-reg, no M, +S1/S2
Lungs-wheezing bilateral lung matthew
Abd-soft, NT, ND
Musculoskeletal-no edema, no deformity
Skin-warm and dry, chronic skin changes bilateral lower extremities
Neuro-grossly non-focal, no tremor
Psych-calm, cooperative
Ms. Cat is an 79-year-old female with a medical history of A-fib, sick sinus syndrome (Medtronic pacemaker), CHF, bipolar disorder, and anemia who presented with shortness of breath and dizziness. She was found to be in A-fib with RVR. She has
been started on diltiazem drip. She was also found to have significantly elevated lactic acid of 10 with a bicarb deficit. She was admitted to the ICU for further management on bicarb drip and titratable diltiazem drip.
Acute bronchospasm:
-Started on scheduled IV steroids and nebulizers
-Will check chest x-ray
-Started empirically on antibiotics for pneumonia with MRSA coverage considering her positive MRSA swab
-Suspect this may be cardiac wheeze as her Lasix was held on admission due to ED but was restarted today
A-fib with RVR:
-History of paroxysmal A-fib
-Now well-controlled on carvedilol which has been increased to 12.5 mg twice daily
-Anticoagulating with Eliquis
-Appreciate cardiology input
Chronic HFpEF:
-Now with reduced ejection fraction
-Echocardiogram 12/19 shows reduced ejection fraction of 40 to 45% with global hypokinesis (previous LVEF was 55 to 60% in March 2023), diastolic dysfunction unable to be determined due to A-fib, mitral regurgitation appears to have worsened to
moderate to severe
-Restarted home dose of Lasix 20 mg p.o. daily now that renal function has returned to normal
-Beta-blockade with carvedilol 12.5 mg twice daily, afterload reduction with low-dose lisinopril
-Cardiology following, monitoring worsening mitral regurgitation which may require further evaluation with LUIZA
Skin lesions:
-Appear chronic, do not appear infected, likely secondary to anxiety disorder with history of picking
-Wound care following
ED:
-Resolved, renal function now within normal limits
-IV fluids discontinued
Lactic acidosis:
-Resolved
-Bicarb drip discontinued
CODE STATUS: DNR/DNI
Anticipated Discharge: 24 - 48 hours
Subjective/Interval History
-
Date of Service: December 23, 2024
Patient was seen and examined at bedside this morning. She had some audible wheezing which is new. She reported still feeling somewhat fatigued but was not experiencing much difficulty breathing. She has been given nebulizer treatments and will
be started on antibiotics and steroids.
Objective Data
-
Labs:
Laboratory Results
12/23/24
08:20
WBC 8.1
Hgb 9.0 L
Hct 32.2 L
Plt Count 206
Sodium 143
Potassium 4.3
Chloride 105
Carbon Dioxide 30
BUN 22 H
Creatinine 0.6
Glucose 101 H
Calcium 8.9
Vital Signs:
Vital Signs
Temp Pulse Resp BP Pulse Ox
97.3 F 78 24 118/58 96
12/23/24 11:09 12/23/24 11:09 12/23/24 11:09 12/23/24 11:09 12/23/24 11:09
I&O
12/22/24 12/23/24 12/24/24
06:59 06:59 06:59
Intake Total 240 / 240 120 / 120
Output Total 2150 / 2150
Balance 240 / 240 -2030 / -2029
Review of Systems
-
History Source: Patient
All other systems: Reviewed and negative
Respiratory: Reports Wheezing
Physical Exam
-
Respiratory: Wheezes
[2024-12-23 15:51] VITALS: BP 137/82
[2024-12-23] MEDS: COREG 12.5 MG PO (18:14)
[2024-12-23 19:17] VITALS: BP 124/84
[2024-12-23] MEDS: DESENEX/MITRAZOL/ZEASORB 1 APPLIC TOPICAL (19:22)
[2024-12-23] MEDS: SOLU-MEDROL PF 40 MG IV (21:38)
[2024-12-23 23:06] VITALS: BP 130/85
[2024-12-24 00:53] LABS: Glucose - Point of Care 202 mg/dl (70-99)
[2024-12-24 03:00] VITALS: BP 117/71
[2024-12-24 05:54] VITALS: BMI 30.7
[2024-12-24 07:44] VITALS: BP 150/85
[2024-12-24 07:44] LABS: % Immature Granulocytes 0.3 % (0-0.5); % Lymphocytes 10.9 % (20.5-51.1); % Monocytes 0.6 % (1.7-9.3); % Neutrophils 88.2 % (42.2-75.2); Absolute Lymphocytes 0.7 10^3/uL (1.2-3.4); Absolute Neutrophils 5.5 10^3/uL (1.4-6.5); Hematocrit 32.4 % (37.0-47.0); Hemoglobin 9.3 g/dL (12.0-16.0); Mean Corp Hgb Conc. 28.7 g/dL (33.0-37.0); Mean Corpuscular Hgb 21.1 pg (27.0-31.0); Mean Corpuscular Volume 73.5 fL (81.0-99.0); Mean Platelet Volume 10.7 fL (7.4-10.4); Nucleated Red Blood Cells % 0.8 %; Platelet Count 198 10^3/uL (130-400); Red Blood Cell Count 4.41 10^6/uL (4.20-5.40); Red Cell Dist. Width 16.7 % (11.5-14.5); White Blood Cell Count 6.2 10^3/uL (4.8-10.8)
[2024-12-24 08:00] LABS: Blood Urea Nitrogen 28 mg/dl (7-17); Calcium 10.2 mg/dl (8.4-10.2); Carbon Dioxide 28 mmol/L (22-30); Chloride 103 mmol/L (98-107); Estimated Creatinine Clearance 63 ml/min; Glucose 156 mg/dl (70-99); Magnesium 1.6 mg/dl (1.6-2.3); Phosphorus 3.8 mg/dl (2.5-4.5); Potassium 4.6 mmol/L (3.5-5.1); Sodium 141 mmol/L (135-145); eGFR > 60.00
[2024-12-24] MEDS: REQUIP 1 MG PO ×2 (08:09→19:21)
[2024-12-24] MEDS: CYMBALTA DELAYED RELEASE 30 MG PO ×2 (08:09→19:21)
[2024-12-24] MEDS: VIBRAMYCIN 100 MG PO ×2 (08:09→19:21)
[2024-12-24] MEDS: SOLU-MEDROL PF 40 MG IV ×2 (08:09→19:22)
[2024-12-24] MEDS: LASIX 20 MG PO (08:10)
[2024-12-24] MEDS: PROTONIX 40 MG PO ×2 (08:10→19:21)
[2024-12-24] MEDS: COREG 12.5 MG PO ×2 (08:10→19:21)
[2024-12-24] MEDS: CEFTIN 250 MG PO ×2 (08:10→19:21)
[2024-12-24] MEDS: ELIQUIS 5 MG PO ×2 (08:10→19:22)
[2024-12-24] MEDS: ZESTRIL 2.5 MG PO (08:10)
[2024-12-24] MEDS: HYDROPHOR 1 APPLIC TOPICAL (08:16)
--- NOTE | 2024-12-24 10:08 | W.PN.CARDCBS ---
Today's Communication / Plan
-
Maintain carvedilol 12.5 mg p.o. twice daily, consider further uptitrating carvedilol to 25 mg p.o. twice daily over the next 24 to 48 hours
Impression / Plan
-
Clinical summary:
79-year-old woman with history of permanent atrial fibrillation, Medtronic pacemaker, reference to HFpEF in the past with history of bipolar disorder, admitted with lactic acidosis and hyperkalemia in the setting of ED, troponin of 0.051 and
bilirubin of 3 with elevated transaminases, culture negative, proBNP was 15,200. Currently lives independently at [facility]
PCP: Dr. Ramya Chaves
Card: Dr. Cruz
Impression:
Admitted with hypoglycemia, hyperkalemia, lactic acidosis and rapid Afib 12/18/24
Lactic acidosis, 10.6 on admission 12/18/24 PM
Cardiomyopathy with ejection fraction of 40-45% 12/19/2024
Moderate to severe MR
Moderate TR with PA systolic pressure 54 mmHg
Chronic HFpEF
Leukocytosis
Anemia of chronic disease
Permanent Afib
Chronic Eliquis OAC
Medtronic DC PPM
Bipolar disorder
Anxiety
B/L LE excoriations
Echocardiogram 12/19/2024: Ejection fraction 40 to 45%, global hypokinesis, moderate TR with PA systolic pressure 54 mmHg, moderate to severe MR
Echo 04/08/2023: EF 55 to 60%, mild concentric LVH, mild to moderate MR, mild TR
Plan:
Atrial fibrillation with rapid ventricular rates, atrial fibrillation is permanent.
Symptomatic with rapid rates
-Heart rate control has improved on carvedilol which has been uptitrated this admission to 12.5 mg po bid
-Maintain carvedilol 12.5 mg p.o. twice daily, consider further uptitrating carvedilol to 25 mg p.o. twice daily over the next 24 to 48 hours
(Given presence of pacemaker, we do not need to worry about bradycardia, and it looks like her blood pressure would also tolerate well)
-Maintain apixaban 5 mg twice daily for atrial fibrillation related thromboembolic risk reduction
Heart failure with mildly reduced/recently reduced LVEF.
Echocardiogram was obtained while rates in atrial fibrillation were rather rapid.
Continue attempts at guideline directed medical therapy
-Continue recently uptitrated carvedilol 12.5 mg twice daily
-Maintain ASHIA inhibitor, lisinopril 2.5 mg daily
-Consider repeat echocardiogram, likely as an outpatient, when ventricular rates are better controlled
-Continue recently resumed furosemide 20 mg daily
On recent echocardiogram mitral regurgitation is moderate to severe
This was in the setting of atrial fibrillation with rapid ventricular rates
-Reassessment of both LV function and degree of mitral regurgitation once atrial fibrillation rate is better controlled.
-Consideration for LUIZA to more fully assess the mitral valve
Bilateral lower extremity excoriations/wounds, management as per primary service.
Total time spent today was 51 minutes in preparing to see the patient, seeing the patient and coordination of care. This included review of recent laboratory evaluations, cardiac testing, imaging studies, medical records as well as personally
interviewing and examining the patient, which included discussion of their tests, review/ordering medications, and communicating with other healthcare professionals and also treatment planning as well as counseling.
Progress Note - Intake Coordinator
Subjective
Date of Service: December 24, 2024
She tells me that overall she is feeling better. Less short of breath. She is happy that her lower extremity wounds are improving.
No chest pain. No shortness of breath at rest. No sensation of palpitations.
Objective
Labs:
12/24/24 07:25
12/24/24 07:25
Labs
Hgb 9.3 g/dL (12.0-16.0) L 12/24/24 07:25
Hct 32.4 % (37.0-47.0) L 12/24/24 07:25
Plt Count 198 10^3/uL (130-400) 12/24/24 07:25
PT 29.3 Sec (11.4-14.6) H 12/18/24 19:49
INR 2.78 12/18/24 19:49
APTT > 200.0 Sec (23.4-35.0) H* 12/19/24 06:38
Sodium 141 mmol/L (135-145) 12/24/24 07:25
Potassium 4.6 mmol/L (3.5-5.1) 12/24/24 07:25
BUN 28 mg/dl (7-17) H 12/24/24 07:25
Creatinine 0.7 mg/dL (0.6-1.0) 12/24/24 07:25
Glucose 156 mg/dl (70-99) H 12/24/24 07:25
Vital Signs and I&O:
Vital Signs
Temp Pulse Resp BP Pulse Ox
97.4 F 117 22 150/85 97
12/24/24 07:44 12/24/24 08:10 12/24/24 07:44 12/24/24 08:10 12/24/24 07:44
Vital Signs
Temp Pulse Resp BP Pulse Ox
97.4 F 117 22 150/85 97
12/24/24 07:44 12/24/24 08:10 12/24/24 07:44 12/24/24 08:10 12/24/24 07:44
Intake & Output
12/22/24 12/23/24 12/24/24 12/25/24
06:59 06:59 06:59 06:59
Intake Total 240 / 240 120 / 120 240 / 240
Output Total 2150 / 2150 1100 / 1100
Balance 240 / 240 -2030 / -2030 -860 / -860
Physical Exam
Physical Exam
Well-appearing no acute distress laying in bed.
Irregular irregular normal S1 and S2, no S3 no S4 there is a grade 2/6 apical holosystolic murmur no rubs.
Lungs are clear to auscultation bilaterally
Extremities show erythema and some broken down skin bilateral lower extremities with wrapping at the right lower extremity.
[2024-12-24 11:41] VITALS: BP 125/73
[2024-12-24 15:34] VITALS: BP 142/86
--- NOTE | 2024-12-24 15:48 | CM ---
Pt's discharge was held yesterday. CM spoke with Rosa at [facility]; pt can be transferred today. She is cleared for discharge to [facility] today. Transport forms were completed and given to Packaging Clerk yesterday for w/c van transport.
NALLELY will notify [facility] of transport time when known.
[facility]
Report#[phone]
[2024-12-24 19:20] VITALS: BP 143/97
--- NOTE | 2024-12-24 20:38 | PTCARENOTE ---
all HS medications administered. updated discharge medlist, heart monitor and INTs removed. pt transported my stretcher,.
== END 2024-12-24 20:35 | DRG 683 ==
LOC: 1 ACUTE 22:58
PROVIDERS: Nurse Practitioner Family; Physician Assistant; ADMITTING PHYSICIAN Hospitalist; ATTENDING PHYSICIAN Internal Medicine; EMERGENCY PHYSICIAN Emergency Medicine; OTHER PHYSICIAN Internal Medicine Cardiovascular Disease; OTHER PHYSICIAN Internal Medicine Critical Care Medicine
DX: N17.9 Acute kidney failure, unspecified (principal); E87.20 Acidosis, unspecified; I48.21 Permanent atrial fibrillation; I50.32 Chronic diastolic (congestive) heart failure; I5A Non-ischemic myocardial injury (non-traumatic); R18.8 Other ascites; Z95.0 Presence of cardiac pacemaker; Z85.820 Personal history of malignant melanoma of skin; D63.8 Anemia in other chronic diseases classified elsewhere; F31.9 Bipolar disorder, unspecified; G25.81 Restless legs syndrome; F41.9 Anxiety disorder, unspecified; K58.0 Irritable bowel syndrome with diarrhea; K21.9 Gastro-esophageal reflux disease without esophagitis; J44.9 Chronic obstructive pulmonary disease, unspecified; Z79.01 Long term (current) use of anticoagulants; Z79.82 Long term (current) use of aspirin; Z79.899 Other long term (current) drug therapy; E87.5 Hyperkalemia; E86.1 Hypovolemia; Z66 Do not resuscitate; I11.0 Hypertensive heart disease with heart failure; I49.5 Sick sinus syndrome; E83.39 Other disorders of phosphorus metabolism; E86.0 Dehydration; E83.42 Hypomagnesemia; Z11.52 Encounter for screening for COVID-19; D72.829 Elevated white blood cell count, unspecified; I08.1 Rheumatic disorders of both mitral and tricuspid valves; I27.20 Pulmonary hypertension, unspecified
CPT/HCPCS: 71045; 71046; 74176; 80048; 80053; 81003; 81015; 82248; 82550; 82728; 82805; 82962; 83036; 83540; 83550; 83605; 83735; 83880; 84100; 84443; 84484; 85025; 85027; 85610; 85730; 86850; 86900; 86901; 87040; 87070; 87086; 87147; 87502; 87811; 93005; 93306; 93922; 93925; 94640; 96374; 96375; 97163; 97167; 97530; 99291; 99292; J7030

== ENCOUNTER → 2025-10-27 11:07 | Outpatient (REF) | payer MEDICARE, SELFPAY | LOC: RCS 11:07 | PROVIDERS: ATTENDING PHYSICIAN Internal Medicine Cardiovascular Disease; FAMILY PHYSICIAN Hospitalist | DX: I48.21 Permanent atrial fibrillation (principal); I34.0 Nonrheumatic mitral (valve) insufficiency | CPT/HCPCS: 93306 ==